=== PATIENT | female | born 1940 | race Caucasian/White ===

== ENCOUNTER 2019-04-04 05:16 | Inpatient (IN) | payer MEDICARE, OTHER ==
[~2019-04-04] VITALS: Ht 157.5 cm; Wt 81.4 kg
[~2019-04-04 05:16] MED LIST: ACET325; ASPI81EC PO; BENAML20/5 PO; BETA.05TCA; Colace100 MG PO; DOCU100 PO; HYDCHL25 PO; INS70/30PN SC; INSLI100I; INSLI100I SC; INSU7030P SC; INSUASPI SC; INSULANI SC; LETR2.5 PO; METF500 PO; NAPR500 PO; Norco 5-325 Ta1 EACH PO; OMEP20ER PO; OXYACE5T; Percocet 5-3251 EACH PO; SODBIC650 PO; SPIHYD PO; WARF5 PO; Zofran Odt8 MG SL
[2019-04-04] MEDS ORDERED: PROM25 PO (06:31)
[2019-04-04 06:42] LABS: BASOPHILS ABSOLUTE AUTO 0.07 K/mm3 (0.00-0.23); BASOPHILS PERCENT AUTO 1 % (0-2); EOSINOPHILS ABSOLUTE AUTO 0.04 K/mm3 (0.00-0.68); EOSINOPHILS PERCENT AUTO 0 % (0-6); Hematocrit 32.5 % (33.0-51.0); Hemoglobin 10.2 g/dL (11.5-16.0); IMMATURE GRAN ABSOLUTE AUTO 0.06 K/mm3 (0.00-0.10); IMMATURE GRAN PERCENT AUTO 0 % (0-1); LYMPHOCYTES ABSOLUTE AUTO 1.51 K/mm3 (0.84-5.20); LYMPHOCYTES PERCENT AUTO 11 % (21-46); MONOCYTES ABSOLUTE AUTO 1.88 K/mm3 (0.16-1.47); MONOCYTES PERCENT AUTO 14 % (4-13); Mean Corpuscular HGB 28.1 pg (26.0-34.0); Mean Corpuscular HGB Conc 31.4 g/dL (31.5-36.5); Mean Corpuscular Volume 90 fL (80-100); Mean Platelet Volume 10.2 fL (9.1-12.4); NEUTROPHILS ABSOLUTE AUTO 10.32 K/mm3 (1.96-9.15); NEUTROPHILS PERCENT AUTO 74 % (41-73); Platelet Count 245 K/mm3 (150-400); RDW Coefficient Variation 17.7 % (11.7-14.2); RDW Standard Deviation 57.9 fL (35.1-46.3); Red Blood Cell Count 3.63 M/mm3 (3.80-5.20); White Blood Cell Count 13.88 K/mm3 (4.00-11.30)
[2019-04-04 07:00] LABS: Albumin, Blood 2.8 g/dL (3.4-5.0); Albumin/Globulin Ratio 0.7 (0.8-1.8); Bun/Creatinine Ratio 19.3 (12.0-20.0); Calcium, Blood 8.9 mg/dL (8.5-10.1); Creatinine, Blood 1.81 mg/dL (0.40-1.00); Potassium, Blood 4.1 mmol/L (3.5-5.5); Total Protein, Blood 6.8 g/dL (6.4-8.2)
[2019-04-04 08:14] LABS: Source, Urine Clean Catch
[2019-04-04 08:19] LABS: Appearance, Urine Clear (Clear); Bilirubin, Urine Neg (Neg); Blood, Urine 3+ (Neg); Glucose Qualitative, Urine 1+ (Neg); Ketones, Urine Neg (Neg); Leukocyte Esterase, Urine Neg (Neg); Nitrite, Urine Neg (Neg); Protein, Urine 4+ (Neg); Specific Gravity, Urine 1.015 (1.003-1.022); Urobilinogen, Urine NORM (Normal)
[2019-04-04 08:20] LABS: Color, Urine Yellow (P-Yellow)
[2019-04-04 08:29] LABS: Bacteria Few /hpf; Red Blood Cells, Urine 0-2 /hpf (0-2); Squamous Epithelial Cells Many /hpf (Few); White Blood Cells, Urine Not Seen /hpf (0-5)
[2019-04-04 08:30] LABS: Granular Casts 0-2 /lpf (0)
[2019-04-04] MEDS ORDERED: FAMO20 PO (12:03)
[2019-04-04] MEDS ORDERED: Metoclopramide H5 MG PO (12:03)
[2019-04-04] MEDS ORDERED: Humalog100 UNIT/1 SC (12:04)
[2019-04-04] MEDS ORDERED: HUMULIN 70100 UNIT/1 SC (12:05)
[2019-04-04] MEDS ORDERED: FURO40 PO ×2 (12:06→12:09)
[2019-04-04] MEDS ORDERED: LIVALO2 MG PO (12:06)
[2019-04-04] MEDS ORDERED: CLON.1 PO ×2 (12:07)
[2019-04-04] MEDS ORDERED: Bisoprolol Fuma10 MG PO (12:07)
[2019-04-04] MEDS ORDERED: Aspir 8181 MG PO (12:08)
[2019-04-04] MEDS ORDERED: TELM80 PO (12:08)
[2019-04-04] MEDS ORDERED: ACET500 PO (12:23)
[2019-04-04] MEDS ORDERED: ZOFRAN4 MG PO (12:24)
--- NOTE | 2019-04-04 14:39 | NUR ---
DR. SWANN IN TO SEE PT AT THIS TIME
--- NOTE | 2019-04-04 21:26 | NUR ---
SHIFT SUMMARY A/O AND NPO T/O SHIFT. UP TO BS W/1 ASSIST R/T WEAKNESS. IVF AND ABX RUNNING PER ORDERS. DR. SWANN IN TO SEE PT THIS AFTER NOON. TELE, CONT. BIOX, AND CPAP IN PLACE. AWAITING BM FOR STOOL SAMPLE. PT IS CURRENTLY RESTING IN BED WITH CPAP ON AND CALL LIGHT IN HAND. WILL CONT. TO MONITOR AND GIVE REPORT TO ONCOMING RN.
[2019-04-05 04:36] LABS: BASOPHILS ABSOLUTE AUTO 0.05 K/mm3 (0.00-0.23); BASOPHILS PERCENT AUTO 0 % (0-2); EOSINOPHILS ABSOLUTE AUTO 0.12 K/mm3 (0.00-0.68); EOSINOPHILS PERCENT AUTO 1 % (0-6); Hematocrit 32.3 % (33.0-51.0); Hemoglobin 9.8 g/dL (11.5-16.0); IMMATURE GRAN ABSOLUTE AUTO 0.06 K/mm3 (0.00-0.10); IMMATURE GRAN PERCENT AUTO 1 % (0-1); LYMPHOCYTES ABSOLUTE AUTO 2.01 K/mm3 (0.84-5.20); LYMPHOCYTES PERCENT AUTO 16 % (21-46); MONOCYTES ABSOLUTE AUTO 1.59 K/mm3 (0.16-1.47); MONOCYTES PERCENT AUTO 13 % (4-13); Mean Corpuscular HGB Conc 30.3 g/dL (31.5-36.5); Mean Corpuscular Volume 92 fL (80-100); Mean Platelet Volume 10.4 fL (9.1-12.4); NEUTROPHILS ABSOLUTE AUTO 8.64 K/mm3 (1.96-9.15); NEUTROPHILS PERCENT AUTO 69 % (41-73); Platelet Count 254 K/mm3 (150-400); RDW Coefficient Variation 17.8 % (11.7-14.2); RDW Standard Deviation 60.4 fL (35.1-46.3); White Blood Cell Count 12.47 K/mm3 (4.00-11.30)
[2019-04-05 04:48] LABS: International Normalized Ratio 1.04; Prothrombin Time Results 11.1 Sec (9.7-11.5)
[2019-04-05 04:58] LABS: Albumin, Blood 2.4 g/dL (3.4-5.0); Albumin/Globulin Ratio 0.6 (0.8-1.8); Bilirubin, Total 0.8 mg/dL (0.1-1.0); Bun/Creatinine Ratio 16.9 (12.0-20.0); Calcium, Blood 8.6 mg/dL (8.5-10.1); Creatinine, Blood 1.89 mg/dL (0.40-1.00); Globulin, Blood 3.8 g/dL (2.2-4.0); Magnesium, Blood 1.9 mg/dL (1.6-2.4); Phosphorus, Blood 2.3 mg/dL (2.5-4.9); Potassium, Blood 4.2 mmol/L (3.5-5.5); Total Protein, Blood 6.2 g/dL (6.4-8.2)
--- NOTE | 2019-04-05 06:33 | NUR ---
PT BP ELEVATED, PT ASYMPTOMATIC. BP RESPONDED TO IV LABETALOL, HR SINUS PER TELE MONITOR. PT CONT TO C/O MILD NAUSEA, NO EMESIS. PT DID REP HALLUCINATIONS AFTER PHENERGAN GIVEN. PT REORIENTED EASILY. PT REP ABD PAIN URIEL, DECLINED NEED FOR PAIN MEDS. PT HAD 1 LARGE FORMED BM, REP LESS ABD PAIN AFTER BM. UNABLE TO COLLECT STOOL SAMPLE R/T CONTAMINATION W/URINE. PT UP W/WALKER +1 ASSIST, IS UNSTEADY WHEN UP. SON IN ROOM FOR MUCH OF NIGHT. PT USING CALL LIGHT FOR ASSISTANCE, BED ALARM ON FOR SAFETY.
--- NOTE | 2019-04-05 17:48 | NUR ---
SUMMARY PT HAS DENIED ABD PAIN THIS SHIFT, TOOK A FEW BITES OF JELLO FOR DINNER AND STATES IT DIDNT SETTLE WELL. PT REPORTS LEFT FOOT PAIN AT BASE OF LEFT GREAT TOE WHICH MAKESIT PAINFUL TO WALK. PT ON CONT BIOX AND HAS REMAINED GREATER THAN 90@, USES CPAP WHEN NAPPING
[2019-04-06 04:50] LABS: BASOPHILS ABSOLUTE AUTO 0.09 K/mm3 (0.00-0.23); BASOPHILS PERCENT AUTO 1 % (0-2); EOSINOPHILS ABSOLUTE AUTO 0.52 K/mm3 (0.00-0.68); EOSINOPHILS PERCENT AUTO 4 % (0-6); Hematocrit 32.7 % (33.0-51.0); Hemoglobin 10.1 g/dL (11.5-16.0); IMMATURE GRAN ABSOLUTE AUTO 0.04 K/mm3 (0.00-0.10); IMMATURE GRAN PERCENT AUTO 0 % (0-1); LYMPHOCYTES ABSOLUTE AUTO 2.06 K/mm3 (0.84-5.20); LYMPHOCYTES PERCENT AUTO 15 % (21-46); MONOCYTES ABSOLUTE AUTO 1.41 K/mm3 (0.16-1.47); MONOCYTES PERCENT AUTO 10 % (4-13); Mean Corpuscular HGB 28.2 pg (26.0-34.0); Mean Corpuscular HGB Conc 30.9 g/dL (31.5-36.5); Mean Corpuscular Volume 91 fL (80-100); Mean Platelet Volume 9.9 fL (9.1-12.4); NEUTROPHILS ABSOLUTE AUTO 9.39 K/mm3 (1.96-9.15); NEUTROPHILS PERCENT AUTO 70 % (41-73); Platelet Count 296 K/mm3 (150-400); RDW Coefficient Variation 17.8 % (11.7-14.2); RDW Standard Deviation 59.5 fL (35.1-46.3); Red Blood Cell Count 3.58 M/mm3 (3.80-5.20); White Blood Cell Count 13.51 K/mm3 (4.00-11.30)
--- NOTE | 2019-04-06 05:00 | NUR ---
SHIFT SUMMARY PT A/O WITH VSS. HAD TWO EPISODES OF NAUSEA WITH NO EMESIS, MEDICATED PER EMAR. TOLERATING WATER, REPORTS BROTH AND JELLO INCREASE NAUSEA. AMB TO BATHROOM WITH FWW, GB, AND ONE ASSIST; REPORTS INCREASED FEAR AND WEAKNESS WITH AMBULATION. SON AT BEDSIDE T/O SHIFT. PT IS CURRENTLY RESTING IN BED WITH CPAP ON AND CALL LIGHT WITHIN REACH. WILL CONT TO MONITOR AND GIVE REPORT TO ONCOMING RN.
[2019-04-06 05:09] LABS: Bun/Creatinine Ratio 16.8 (12.0-20.0); Calcium, Blood 8.8 mg/dL (8.5-10.1); Creatinine, Blood 1.79 mg/dL (0.40-1.00); Potassium, Blood 4.3 mmol/L (3.5-5.5)
--- NOTE | 2019-04-06 08:24 | NUR ---
DR HARRIS HERE TO SEE PT. DISCUSSED PT'S STATUS.
--- NOTE | 2019-04-06 12:15 | NUR ---
PT REPORTED HAVING SHARP H/A THAT CAME AND WENT QUICKLY AND THAT SHE WAS SHORT OF BREATH. PT REPOSITIONED, PLACED ON CPAP AND REPORTS FEELING BETTER, FAMILY WAS IN ROOM. PT RECENTLY MED FOR BP. DISCUSSED PT'S STATUS WITH DR HARRIS. REPORTS WILL PLACE ORDERS.
--- NOTE | 2019-04-06 17:46 | NUR ---
SHIFT SUMMARY PT TOLERATING SMALL AMTS OF ENSURE AT TIMES. PT BEEN MED FOR BP AND NAUSEA. PT REPORTS FEELING BETTER THIS EVENING. PT BEEN RESTING QUIETLY WITH CPAP IN PLACE. BED ALARM IN PLACE. PT FAMILY IN/OUT OF ROOM. PT USING CALL LIGHT APPR. PT BEEN ASSISTED WITH ADL'S PRN. PT VOIDING.
[2019-04-07 01:35] LABS: Stool Occult Blood Guaiac 1 Neg (Neg)
--- NOTE | 2019-04-07 04:15 | NUR ---
SHIFT SUMMARY PT IS A/O X4. PT REQUIRES STANDBY ASSIST WITH WALKER AND GAIT BELT TO BATHROOM. SHE HAS BEEN UP TO BATHROOM SEVERAL TIMES THIS SHIFT. PT IS VOIDING AND PASSING LOOSE/WATERY BROWN STOOL. ATTENS IN PLACE. PT TOLERATING CLEAR LIQUID DIET WITH SOME NAUSEA; GIVEN MEDS PER ORDERS. PT HAS NOT C/O PAIN THIS SHIFT. PT WEARS CPAP AT NIGHT. SON HAS BEEN IN WITH PT OVERNIGHT. ASSISTED WITH ADL'S PRN.
[2019-04-07 05:03] LABS: BASOPHILS ABSOLUTE AUTO 0.04 K/mm3 (0.00-0.23); BASOPHILS PERCENT AUTO 0 % (0-2); EOSINOPHILS ABSOLUTE AUTO 0.48 K/mm3 (0.00-0.68); EOSINOPHILS PERCENT AUTO 4 % (0-6); Hematocrit 31.3 % (33.0-51.0); Hemoglobin 9.9 g/dL (11.5-16.0); IMMATURE GRAN ABSOLUTE AUTO 0.05 K/mm3 (0.00-0.10); IMMATURE GRAN PERCENT AUTO 0 % (0-1); LYMPHOCYTES ABSOLUTE AUTO 1.86 K/mm3 (0.84-5.20); LYMPHOCYTES PERCENT AUTO 16 % (21-46); MONOCYTES ABSOLUTE AUTO 1.28 K/mm3 (0.16-1.47); MONOCYTES PERCENT AUTO 11 % (4-13); Mean Corpuscular HGB 28.8 pg (26.0-34.0); Mean Corpuscular HGB Conc 31.6 g/dL (31.5-36.5); Mean Corpuscular Volume 91 fL (80-100); Mean Platelet Volume 9.9 fL (9.1-12.4); NEUTROPHILS ABSOLUTE AUTO 7.75 K/mm3 (1.96-9.15); NEUTROPHILS PERCENT AUTO 68 % (41-73); Platelet Count 306 K/mm3 (150-400); RDW Standard Deviation 60.6 fL (35.1-46.3); Red Blood Cell Count 3.44 M/mm3 (3.80-5.20); White Blood Cell Count 11.46 K/mm3 (4.00-11.30)
--- NOTE | 2019-04-07 14:00 | NUR ---
PT PLACED IN ISOLATION TO R/O C-DIFF.
--- NOTE | 2019-04-07 18:15 | NUR ---
SHIFT SUMMARY PT TOLERATING F.L. DIET SO FAR "I'M SO FULL", PT CONT TO REPORT TAKING IT SLOW WHEN EATING STILL, DENIES WANTING ANY MORE DINNER. PT BEEN ASSISTED WITH ADL'S PRN. PT HAS "TWELVE STEPS TO GET IN HOUSE". PT FEELS THAT SHE WOULD POSSIBLY NOT BE ABLE TO DO ALL TWELVE STEPS. PT TO WORK WITH THERAPY TOMMOROW TO ASSESS. PT ABLE TO AMBULATE SAFELY WITH WALKER TO BATHROOM WITH SBA. PT USING [employer] APPR.
[2019-04-08] LABS: Adenovirus F 40/41 Not Detected (NOT DETECT); Astrovirus Not Detected (NOT DETECT); Campylobacter Sp Not Detected (NOT DETECT); Cryptosporidium Not Detected (NOT DETECT); Cyclospora Cayetanensis Not Detected (NOT DETECT); E. Coli O157 Not Detected (NOT DETECT); Entamoeba Histolytica Not Detected (NOT DETECT); Enteroaggregative E. coli-EAEC Not Detected (NOT DETECT); Enteropathogenic E. coli-EPEC Not Detected (NOT DETECT); Enterotoxigenic E. coli-ETEC Not Detected (NOT DETECT); Giardia Lamblia Not Detected (NOT DETECT); Norovirus GI/GII Not Detected (NOT DETECT); Plesiomonas Shigelloides Not Detected (NOT DETECT); Rotavirus A Not Detected (NOT DETECT); Salmonella Sp Not Detected (NOT DETECT); Sapovirus Not Detected (NOT DETECT); Shiga Toxin-prod E. coli-STEC Not Detected (NOT DETECT); Shigella/Enteroin E. coli-EIEC Not Detected (NOT DETECT); Vibrio Cholerae Not Detected (NOT DETECT); Vibrio Sp Not Detected (NOT DETECT); Yersinia Enterocolitica Not Detected (NOT DETECT)
--- NOTE | 2019-04-08 06:06 | NUR ---
SHIFT SUMMARY: VARSHA RESTED INTERMITTENTLY DURING THE SHIFT. SHE DID COMPLAIN OF A HEADACHE FOR WHICH SHE REPORTED APAP WAS EFFECTIVE. THE STOOL SAMPLE WAS POSITIVE FOR C-DIFF. SHE REPORTS SOME EPISDOES OF DIARRHEA. SHE IS A STANDBY ASSIST TO THE BATHROOM. SHE HAS BEEN WEARING HER CPAP. SHE IS ANTICIPATING DISCHARGING HOME TODAY. SHE IS TOLERATING A FULL LIQUID DIET WELL, NO N/V. CONTINUOUS PULSE OX IN PLACE, SATURATIONS MAINTAINING ABOVE 93%. SHE IS ABLE TO MAKE HER NEEDS KNOWN. SHE USES HER CALL LIGHT APPROPRIATELY. IV TO RIGHT HAND PATENT. SON AT BESIDE. SHE IS LYING IN BED WITH HER CPAP IN PLACE AND CALL LIGHT IN REACH.
[2019-04-08] MEDS ORDERED: Cipro250 MG PO (14:25)
[2019-04-08] MEDS ORDERED: METR500 PO (14:26)
[2019-04-08] MEDS ORDERED: Florastor250 MG PO (14:27)
--- NOTE | 2019-04-08 15:52 | NUR ---
DISCHARGE: PACKET PRINTED, PT EDUCATED. LEFT UNIT VIA WHEELCHAIR WITH Brenden DIEZ CNA. PT AWARE OF DISCHARGE
== END 2019-04-08 15:20 | disposition home health service (06) | DRG 392 ==
LOC: ER 05:16 → SURS 09:47 → ER 12:11 → SURS 12:22
PROVIDERS: Emergency Medicine; Family Medicine; Nurse Practitioner Acute Care; ADMIT Hospitalist
DX: K57.20 Diverticulitis of large intestine with perforation and abscess without bleeding (principal); E11.22 Type 2 diabetes mellitus with diabetic chronic kidney disease; N18.3 Chronic kidney disease, stage 3 (moderate); I12.9 Hypertensive chronic kidney disease with stage 1 through stage 4 chronic kidney disease, or unspecified chronic kidney disease; B96.89 Other specified bacterial agents as the cause of diseases classified elsewhere; D63.1 Anemia in chronic kidney disease; K21.9 Gastro-esophageal reflux disease without esophagitis; E78.5 Hyperlipidemia, unspecified; E11.43 Type 2 diabetes mellitus with diabetic autonomic (poly)neuropathy; K31.84 Gastroparesis; Z79.82 Long term (current) use of aspirin; Z79.4 Long term (current) use of insulin; Z79.899 Other long term (current) drug therapy; Z88.5 Allergy status to narcotic agent; Z88.2 Allergy status to sulfonamides; Z88.8 Allergy status to other drugs, medicaments and biological substances
CPT/HCPCS: 0097U; 36415; 71045; 74176; 80048; 80053; 81001; 82272; 82947; 83690; 83735; 83880; 84100; 85025; 85610; 87040; 87324; 94762; 96365; 96367; 96375; 97116; 97161; 97530; 99285-25; A9270; A9270-GY; C9113; J0360; J0696; J2405; J2543; J2550; J2765; J7030

== ENCOUNTER 2019-04-08 22:26 | Emergency (ER) | payer MEDICARE, OTHER ==
[~2019-04-08] VITALS: Ht 157.5 cm; Wt 79.4 kg
[~2019-04-08 22:26] MED LIST changes: +ACET500 PO; +Aspir 8181 MG PO; +Bisoprolol Fuma10 MG PO; +CLON.1 PO; +Cipro250 MG PO; +FAMO20 PO; +FURO40 PO; +Florastor250 MG PO; +HUMULIN 70100 UNIT/1 SC; +Humalog100 UNIT/1 SC; +LIVALO2 MG PO; +METR500 PO; +Metoclopramide H5 MG PO; +PROM25 PO; +TELM80 PO; +ZOFRAN4 MG PO
[2019-04-08 22:59] LABS: BASOPHILS ABSOLUTE AUTO 0.05 K/mm3 (0.00-0.23); BASOPHILS PERCENT AUTO 0 % (0-2); EOSINOPHILS ABSOLUTE AUTO 0.27 K/mm3 (0.00-0.68); EOSINOPHILS PERCENT AUTO 2 % (0-6); Hematocrit 32.8 % (33.0-51.0); Hemoglobin 10.4 g/dL (11.5-16.0); IMMATURE GRAN ABSOLUTE AUTO 0.05 K/mm3 (0.00-0.10); IMMATURE GRAN PERCENT AUTO 0 % (0-1); LYMPHOCYTES ABSOLUTE AUTO 1.61 K/mm3 (0.84-5.20); LYMPHOCYTES PERCENT AUTO 13 % (21-46); MONOCYTES ABSOLUTE AUTO 1.21 K/mm3 (0.16-1.47); MONOCYTES PERCENT AUTO 10 % (4-13); Mean Corpuscular HGB 28.8 pg (26.0-34.0); Mean Corpuscular HGB Conc 31.7 g/dL (31.5-36.5); Mean Corpuscular Volume 91 fL (80-100); Mean Platelet Volume 9.8 fL (9.1-12.4); NEUTROPHILS ABSOLUTE AUTO 9.44 K/mm3 (1.96-9.15); NEUTROPHILS PERCENT AUTO 75 % (41-73); Platelet Count 342 K/mm3 (150-400); RDW Coefficient Variation 17.5 % (11.7-14.2); RDW Standard Deviation 58.1 fL (35.1-46.3); Red Blood Cell Count 3.61 M/mm3 (3.80-5.20); White Blood Cell Count 12.63 K/mm3 (4.00-11.30)
[2019-04-08 23:11] LABS: Albumin, Blood 2.6 g/dL (3.4-5.0); Albumin/Globulin Ratio 0.7 (0.8-1.8); Bilirubin, Total 0.4 mg/dL (0.1-1.0); Calcium, Blood 8.8 mg/dL (8.5-10.1); Creatinine, Blood 1.44 mg/dL (0.40-1.00); Globulin, Blood 3.9 g/dL (2.2-4.0); Potassium, Blood 3.6 mmol/L (3.5-5.5); Total Protein, Blood 6.5 g/dL (6.4-8.2)
== END 2019-04-09 02:15 | disposition home or self-care (01) ==
LOC: ER 22:26
PROVIDERS: Emergency Medicine
DX: E11.65 Type 2 diabetes mellitus with hyperglycemia (principal); I10 Essential (primary) hypertension; Z88.8 Allergy status to other drugs, medicaments and biological substances; Z88.2 Allergy status to sulfonamides; Z91.048 Other nonmedicinal substance allergy status; Z88.5 Allergy status to narcotic agent; Z79.899 Other long term (current) drug therapy; Z79.4 Long term (current) use of insulin; Z79.82 Long term (current) use of aspirin
CPT/HCPCS: 36415; 70450; 80053; 82947; 85025; 93005; 93010; 96361; 96374; 99285-25; J1815; J2405; J7030

== ENCOUNTER 2019-05-05 15:00 | Inpatient (IN) | payer MEDICARE, OTHER ==
[~2019-05-05] VITALS: Ht 157.5 cm; Wt 73.6 kg
[~2019-05-05 15:00] MED LIST changes: -Bisoprolol Fuma10 MG PO; +Bisoprolol Fumar5 MG PO
[2019-05-05 16:07] LABS: BASOPHILS ABSOLUTE AUTO 0.06 K/mm3 (0.00-0.23); BASOPHILS PERCENT AUTO 0 % (0-2); EOSINOPHILS ABSOLUTE AUTO 0.21 K/mm3 (0.00-0.68); EOSINOPHILS PERCENT AUTO 1 % (0-6); Hematocrit 37.3 % (33.0-51.0); Hemoglobin 11.7 g/dL (11.5-16.0); IMMATURE GRAN ABSOLUTE AUTO 0.06 K/mm3 (0.00-0.10); IMMATURE GRAN PERCENT AUTO 0 % (0-1); LYMPHOCYTES PERCENT AUTO 14 % (21-46); MONOCYTES ABSOLUTE AUTO 2.34 K/mm3 (0.16-1.47); MONOCYTES PERCENT AUTO 15 % (4-13); Mean Corpuscular HGB 29.9 pg (26.0-34.0); Mean Corpuscular HGB Conc 31.4 g/dL (31.5-36.5); Mean Corpuscular Volume 95 fL (80-100); Mean Platelet Volume 10.7 fL (9.1-12.4); NEUTROPHILS ABSOLUTE AUTO 10.81 K/mm3 (1.96-9.15); NEUTROPHILS PERCENT AUTO 69 % (41-73); Platelet Count 320 K/mm3 (150-400); RDW Coefficient Variation 13.9 % (11.7-14.2); RDW Standard Deviation 49.4 fL (35.1-46.3); Red Blood Cell Count 3.91 M/mm3 (3.80-5.20); White Blood Cell Count 15.58 K/mm3 (4.00-11.30)
[2019-05-05 16:18] LABS: Source, Urine Clean Catch
[2019-05-05 16:23] LABS: Bilirubin, Urine Neg (Neg); Blood, Urine 1+ (Neg); Glucose Qualitative, Urine Neg (Neg); Ketones, Urine Neg (Neg); Leukocyte Esterase, Urine Neg (Neg); Nitrite, Urine Neg (Neg); Protein, Urine 3+ (Neg); Specific Gravity, Urine 1.015 (1.003-1.022); Urobilinogen, Urine NORM (Normal)
[2019-05-05 16:25] LABS: Albumin, Blood 2.9 g/dL (3.4-5.0); Albumin/Globulin Ratio 0.6 (0.8-1.8); Bilirubin, Total 0.6 mg/dL (0.1-1.0); Bun/Creatinine Ratio 28.6 (12.0-20.0); Calcium, Blood 9.4 mg/dL (8.5-10.1); Creatinine, Blood 2.34 mg/dL (0.40-1.00); Globulin, Blood 4.7 g/dL (2.2-4.0); Potassium, Blood 4.1 mmol/L (3.5-5.5); Total Protein, Blood 7.6 g/dL (6.4-8.2)
[2019-05-05 16:45] LABS: Appearance, Urine Hazy (Clear); Color, Urine Yellow (P-Yellow)
[2019-05-05 16:46] LABS: White Blood Cells, Urine 0-2 /hpf (0-5)
[2019-05-05 16:47] LABS: Amorphous Heavy (0-Heavy); Bacteria Few /hpf; Squamous Epithelial Cells Few /hpf (Few)
[2019-05-05] MEDS ORDERED: Zantac150 MG PO (17:25)
--- NOTE | 2019-05-06 04:38 | NUR ---
SHIFT SUMMARY: A/OX3. COMMUNICATES NEEDS. AFEB. PREFERRING TO USE BED CROOKS RATHER THAN T/F W/ ASSIST TO BSC DUE TO CONTINUED WEAKNESS. SBP ELEVATED. CBG 71-135. FREQUENCY OF CBG CHECKS PER PT REQUEST AND FEELING SWEATY. PT DENYING PAIN AT HS AND REPORTED PAIN LATER IN THE NIGHT. TYLENOL EFFECTIVE. DID NOT FALL ASLEEP UNTIL AFTER 3AM. BED LOW, CALL BUTTON EXPLAINED AND PLACED WITHIN REACH. WILL CONT TO MONITOR.
[2019-05-06 05:23] LABS: BASOPHILS ABSOLUTE AUTO 0.05 K/mm3 (0.00-0.23); BASOPHILS PERCENT AUTO 0 % (0-2); EOSINOPHILS ABSOLUTE AUTO 0.18 K/mm3 (0.00-0.68); EOSINOPHILS PERCENT AUTO 1 % (0-6); Hemoglobin 10.1 g/dL (11.5-16.0); IMMATURE GRAN ABSOLUTE AUTO 0.06 K/mm3 (0.00-0.10); IMMATURE GRAN PERCENT AUTO 0 % (0-1); LYMPHOCYTES ABSOLUTE AUTO 2.16 K/mm3 (0.84-5.20); LYMPHOCYTES PERCENT AUTO 13 % (21-46); MONOCYTES ABSOLUTE AUTO 1.96 K/mm3 (0.16-1.47); MONOCYTES PERCENT AUTO 12 % (4-13); Mean Corpuscular HGB 29.9 pg (26.0-34.0); Mean Corpuscular HGB Conc 31.6 g/dL (31.5-36.5); Mean Corpuscular Volume 95 fL (80-100); Mean Platelet Volume 10.6 fL (9.1-12.4); NEUTROPHILS ABSOLUTE AUTO 12.52 K/mm3 (1.96-9.15); NEUTROPHILS PERCENT AUTO 74 % (41-73); Platelet Count 267 K/mm3 (150-400); RDW Coefficient Variation 13.8 % (11.7-14.2); RDW Standard Deviation 47.9 fL (35.1-46.3); Red Blood Cell Count 3.38 M/mm3 (3.80-5.20); White Blood Cell Count 16.93 K/mm3 (4.00-11.30)
[2019-05-06 05:39] LABS: Albumin, Blood 2.2 g/dL (3.4-5.0); Albumin/Globulin Ratio 0.6 (0.8-1.8); Bilirubin, Total 0.6 mg/dL (0.1-1.0); Bun/Creatinine Ratio 25.7 (12.0-20.0); Calcium, Blood 8.3 mg/dL (8.5-10.1); Creatinine, Blood 2.1 mg/dL (0.40-1.00); Globulin, Blood 3.9 g/dL (2.2-4.0); Magnesium, Blood 2.1 mg/dL (1.6-2.4); Potassium, Blood 4.1 mmol/L (3.5-5.5); Total Protein, Blood 6.1 g/dL (6.4-8.2)
--- NOTE | 2019-05-06 18:00 | NUR ---
BLOOD PRESSURE PT'S BLOOD PRESSURE CONTINUES TO BE ELEVATED SYSTOLICLY BUT DIASTOLIC IS LOW. DR. GUERRIER IS AWARE THAT BLOOD PRESSURE CONTINUES TO BE ELEVATED AFTER CHANGING PT'S CLONIDINE DOSE THIS AM. NO NEW ORDERS AT THIS TIME. WILL CONTINUE TO MONITOR. CALL LIGHT IN REACH.
--- NOTE | 2019-05-06 18:43 | NUR ---
SHIFT SUMMARY PT HAS BEEN SLEEPING OFF AND ON THIS SHIFT. NO COMPLAINTS OF PAIN. C/O NAUSEA AND ZOFRAN GIVEN THIS EVENING. PT HAD 2 BMS THIS SHIFT. IVF INFUSING WITHOUT DIFFICULTY. PLANS FOR PT TO DISCHARGE TOMORROW. NO ACUTE CHANGES. CALL LIGHT IN REACH. WILL CONTINUE TO MONITOR AND REPORT TO ONCOMING RN.
--- NOTE | 2019-05-06 23:36 | NUR ---
NAUSEA/RETCHING *LATE ENTRY* DURING ASSESSMENT PT WAS RETCHING & STATED SHE FELT NAUSEOUS R/T THE BEEF STEW SHE ATE FOR DINNER & SHE HAS NAUSEA QUITE FREQUENTLY FROM THINGS SHE EATS R/T HER GASTROPARESIS & DIVERTICULITIS. PT HAD ALREADY RECIEVED PO ZOFRAN @1859 & IT WAS TOO EARLY TO GIVE AGAIN. NOTIFIED DR RAI & SHE ORDERED A OT DOSE OF IV ZOFRAN & PT HAS HAD NO NAUSEA OR RETCHING SINCE. WCTM.
--- NOTE | 2019-05-07 04:47 | NUR ---
SHIFT SUMMARY AOX4. BP ELEVATED @179/56, LOOKS LIKE IT HAS BEEN TRENDING IN THE 170'S SYSTOLIC. REST OF VS ARE STABLE. PT RECIEVED PO CATAPRES & TOPROL @HS LAST NIGHT. CBG @HS 217. REPORTED NAUSEA @BEGINNING OF SHIFT, DENIES ANY THIS AM. DENIES PAIN OR DYSPNEA. STBY ASSIST TO BSC, HAS CLEAR YELLOW URINE OUTPUT. NS RUNNING @75/HR. PT STATES SHE IS EXCITED TO GO HOME TODAY. CALL LIGHT IN REACH. WCTM.
[2019-05-07 05:55] LABS: BASOPHILS ABSOLUTE AUTO 0.06 K/mm3 (0.00-0.23); BASOPHILS PERCENT AUTO 1 % (0-2); EOSINOPHILS ABSOLUTE AUTO 0.86 K/mm3 (0.00-0.68); EOSINOPHILS PERCENT AUTO 7 % (0-6); Hemoglobin 10.5 g/dL (11.5-16.0); IMMATURE GRAN ABSOLUTE AUTO 0.04 K/mm3 (0.00-0.10); IMMATURE GRAN PERCENT AUTO 0 % (0-1); LYMPHOCYTES ABSOLUTE AUTO 2.03 K/mm3 (0.84-5.20); LYMPHOCYTES PERCENT AUTO 17 % (21-46); MONOCYTES ABSOLUTE AUTO 1.37 K/mm3 (0.16-1.47); MONOCYTES PERCENT AUTO 11 % (4-13); Mean Corpuscular HGB 30.5 pg (26.0-34.0); Mean Corpuscular HGB Conc 31.8 g/dL (31.5-36.5); Mean Corpuscular Volume 96 fL (80-100); Mean Platelet Volume 11.3 fL (9.1-12.4); NEUTROPHILS ABSOLUTE AUTO 7.68 K/mm3 (1.96-9.15); NEUTROPHILS PERCENT AUTO 64 % (41-73); Platelet Count 266 K/mm3 (150-400); RDW Coefficient Variation 13.4 % (11.7-14.2); RDW Standard Deviation 47.2 fL (35.1-46.3); Red Blood Cell Count 3.44 M/mm3 (3.80-5.20); White Blood Cell Count 12.04 K/mm3 (4.00-11.30)
[2019-05-07 06:23] LABS: Albumin, Blood 2.2 g/dL (3.4-5.0); Anion Gap 7 mmol/L (6-16); Blood Urea Nitrogen 41 mg/dL (8-24); Bun/Creatinine Ratio 24.3 (12.0-20.0); CO2, Blood 23 mmol/L (21-32); Calcium, Blood 8.7 mg/dL (8.5-10.1); Chloride, Blood 108 mmol/L (98-108); Creatinine, Blood 1.69 mg/dL (0.40-1.00); Glomerular Filtration Rate 31 (60-); Glucose, Blood 154 mg/dL (70-99); Magnesium, Blood 1.9 mg/dL (1.6-2.4); Phosphorus, Blood 2.7 mg/dL (2.5-4.9); Potassium, Blood 4.2 mmol/L (3.5-5.5); Sodium, Blood 138 mmol/L (136-145)
--- NOTE | 2019-05-07 18:15 | NUR ---
NO ACUTE CHANGES THIS SHIFT. SHE IS ABLE TO EXPRESS ANY NEEDS. CALL LIGHT WITHIN REACH.
[2019-05-08 05:29] LABS: Hematocrit 33.1 % (33.0-51.0); Hemoglobin 10.7 g/dL (11.5-16.0)
[2019-05-08 05:55] LABS: Albumin, Blood 2.4 g/dL (3.4-5.0); Anion Gap 9 mmol/L (6-16); Blood Urea Nitrogen 35 mg/dL (8-24); Bun/Creatinine Ratio 22.7 (12.0-20.0); CO2, Blood 22 mmol/L (21-32); Calcium, Blood 8.9 mg/dL (8.5-10.1); Chloride, Blood 104 mmol/L (98-108); Creatinine, Blood 1.54 mg/dL (0.40-1.00); Glomerular Filtration Rate 34 (60-); Glucose, Blood 217 mg/dL (70-99); Magnesium, Blood 1.9 mg/dL (1.6-2.4); Phosphorus, Blood 2.3 mg/dL (2.5-4.9); Potassium, Blood 4.3 mmol/L (3.5-5.5); Sodium, Blood 135 mmol/L (136-145)
--- NOTE | 2019-05-08 07:48 | NUR ---
SHIFT SUMMARY AOX4. PT HAS NOT SLEPT MORE THAN AN HOUR TONIGHT & STATES SHE "JUST WANTS TO GO HOME." BP WAS 203/78 LAST NIGHT & I GAVE SCHEDULED PM BP MEDS & WHEN RECHECKED BP WAS 190/70, THIS AM BP HAS DECREASED TO 149/81. PT ALSO REPORTED FEELING NAUSEOUS AND WAS MEDICATED 2X W/ZOFRAN PER ORDERS, HOWEVER DID NOT HAVE RETCHING LIKE PREVIOUS NIGHT. DENIES PAIN. REPORTED DYSPNEA & STATED SHE NORMALLY WEAR A CPAP @HS, RT BROUGHT CPAP FOR PT TO WEAR HOWEVER SHE DID NOT LIKE THE ONE WE PROVIDED & STATED SHE WOULD HAVE SOMEONE BRING IN HERS FROM HOME. CALL LIGHT IN REACH.
[2019-05-08] MEDS ORDERED: CLON.1 PO (09:00)
[2019-05-08] MEDS ORDERED: METO100ER PO (09:00)
[2019-05-08] MEDS ORDERED: FAMO20 PO (09:01)
[2019-05-08] MEDS ORDERED: DOCU100 PO (09:02)
--- NOTE | 2019-05-08 13:28 | NUR ---
1208 PT DISCHARGED HOME WITH HH. PT HAD IV REMOVED, NO SS OF INFECTION NOTED. PT DRESSED BY STUDEN AND BELONGINGS GATHERED. NURSE WENT OVER DISCHARGE INSTRUCTIONS WITH SON AND PT. APPOINTMENTS MADE FOR FOLLOW [employer]. MEDS FAXED TO PHARMACY OF CHOICE. PT WHEELED OUT BY NURSE AND ASSISTED INTO CAR. PT TAKEN HOME BY SON.
== END 2019-05-08 12:08 | disposition home health service (06) | DRG 683 ==
LOC: ER 15:00 → MEDS 17:57 → ENPENDDIS 05-08 08:42 → MEDS 05-08 12:08
PROVIDERS: Emergency Medicine; Internal Medicine Nephrology; ADMIT Family Medicine
DX: N17.9 Acute kidney failure, unspecified (principal); E87.1 Hypo-osmolality and hyponatremia; N18.3 Chronic kidney disease, stage 3 (moderate); E11.22 Type 2 diabetes mellitus with diabetic chronic kidney disease; I12.9 Hypertensive chronic kidney disease with stage 1 through stage 4 chronic kidney disease, or unspecified chronic kidney disease; E86.0 Dehydration; E11.43 Type 2 diabetes mellitus with diabetic autonomic (poly)neuropathy; K31.84 Gastroparesis; D63.1 Anemia in chronic kidney disease; E86.9 Volume depletion, unspecified; E83.39 Other disorders of phosphorus metabolism; K21.9 Gastro-esophageal reflux disease without esophagitis; E78.5 Hyperlipidemia, unspecified; K59.00 Constipation, unspecified; N25.81 Secondary hyperparathyroidism of renal origin; Z88.5 Allergy status to narcotic agent; Z88.2 Allergy status to sulfonamides; Z88.8 Allergy status to other drugs, medicaments and biological substances; Z79.4 Long term (current) use of insulin; Z79.82 Long term (current) use of aspirin; Z79.899 Other long term (current) drug therapy
CPT/HCPCS: 36415; 51701; 71046; 76770; 80053; 80069; 81001; 82947; 83605; 83735; 84145; 85014; 85018; 85025; 94660; 94762; 96360-59; 96361; 96361-59; 96365; 96372; 96375; 96376; 97110; 97112; 97116; 97162; 97165; 97530; 97535; 99285-25; A9270-GY; G0378; J0696; J1650; J1815; J2405; J7030; J7060

== ENCOUNTER 2019-06-25 20:10 | Emergency (ER) | payer MEDICARE, OTHER ==
[~2019-06-25] VITALS: Ht 157.5 cm; Wt 74.8 kg
[~2019-06-25 20:10] MED LIST changes: +METO100ER PO; +Zantac150 MG PO
[2019-06-25 20:57] LABS: BASOPHILS ABSOLUTE AUTO 0.08 K/mm3 (0.00-0.23); BASOPHILS PERCENT AUTO 1 % (0-2); EOSINOPHILS PERCENT AUTO 4 % (0-6); Hemoglobin 13.5 g/dL (11.5-16.0); IMMATURE GRAN ABSOLUTE AUTO 0.04 K/mm3 (0.00-0.10); IMMATURE GRAN PERCENT AUTO 0 % (0-1); LYMPHOCYTES ABSOLUTE AUTO 2.58 K/mm3 (0.84-5.20); LYMPHOCYTES PERCENT AUTO 25 % (21-46); MONOCYTES ABSOLUTE AUTO 0.91 K/mm3 (0.16-1.47); MONOCYTES PERCENT AUTO 9 % (4-13); Mean Corpuscular HGB 28.4 pg (26.0-34.0); Mean Corpuscular HGB Conc 32.1 g/dL (31.5-36.5); Mean Corpuscular Volume 88 fL (80-100); Mean Platelet Volume 11.1 fL (9.1-12.4); NEUTROPHILS ABSOLUTE AUTO 6.28 K/mm3 (1.96-9.15); NEUTROPHILS PERCENT AUTO 61 % (41-73); Platelet Count 243 K/mm3 (150-400); RDW Coefficient Variation 13.2 % (11.7-14.2); RDW Standard Deviation 43.3 fL (35.1-46.3); Red Blood Cell Count 4.76 M/mm3 (3.80-5.20); White Blood Cell Count 10.29 K/mm3 (4.00-11.30)
[2019-06-25 21:18] LABS: Alanine Aminotransfer (ALT/SGP 25 U/L (12-78); Albumin, Blood 3.2 g/dL (3.4-5.0); Albumin/Globulin Ratio 0.8 (0.8-1.8); Alk Phos 96 U/L (50-136); Anion Gap 7 mmol/L (6-16); Aspartate Aminotrans (AST/SGOT 26 U/L (12-37); Bilirubin, Total 0.3 mg/dL (0.1-1.0); Blood Urea Nitrogen 46 mg/dL (8-24); Bun/Creatinine Ratio 35.1 (12.0-20.0); CO2, Blood 26 mmol/L (21-32); Calcium, Blood 9.5 mg/dL (8.5-10.1); Chloride, Blood 104 mmol/L (98-108); Creatinine, Blood 1.31 mg/dL (0.40-1.00); Globulin, Blood 4.2 g/dL (2.2-4.0); Glomerular Filtration Rate 41 (60-); Glucose, Blood 184 mg/dL (70-99); Potassium, Blood 4.2 mmol/L (3.5-5.5); Sodium, Blood 137 mmol/L (136-145); Total Protein, Blood 7.4 g/dL (6.4-8.2); Troponin I <0.015 ng/mL (0.000-0.040)
[2019-06-25 21:34] LABS: Source, Urine Clean Catch
[2019-06-25 21:43] LABS: Bilirubin, Urine Neg (Neg); Blood, Urine 3+ (Neg); Glucose Qualitative, Urine Neg (Neg); Ketones, Urine Neg (Neg); Leukocyte Esterase, Urine 3+ (Neg); Nitrite, Urine Neg (Neg); Protein, Urine 4+ (Neg); Urobilinogen, Urine NORM (Normal)
[2019-06-25 21:50] LABS: Appearance, Urine Clear (Clear); Color, Urine Yellow (P-Yellow)
[2019-06-25 21:51] LABS: Bacteria Mod /hpf; Squamous Epithelial Cells Mod /hpf (Few); White Blood Cells, Urine 25-50 /hpf (0-5)
[2019-06-25] MEDS ORDERED: CEFP200 PO (22:12)
== END 2019-06-25 23:50 | disposition home or self-care (01) ==
LOC: ER 20:10
PROVIDERS: Emergency Medicine
DX: R55 Syncope and collapse (principal); N39.0 Urinary tract infection, site not specified; I12.9 Hypertensive chronic kidney disease with stage 1 through stage 4 chronic kidney disease, or unspecified chronic kidney disease; E11.22 Type 2 diabetes mellitus with diabetic chronic kidney disease; N18.9 Chronic kidney disease, unspecified; D63.1 Anemia in chronic kidney disease; E11.43 Type 2 diabetes mellitus with diabetic autonomic (poly)neuropathy; K31.84 Gastroparesis; K21.9 Gastro-esophageal reflux disease without esophagitis; E78.5 Hyperlipidemia, unspecified; Z88.8 Allergy status to other drugs, medicaments and biological substances; Z88.2 Allergy status to sulfonamides; Z91.048 Other nonmedicinal substance allergy status; Z88.5 Allergy status to narcotic agent; Z79.4 Long term (current) use of insulin; Z79.82 Long term (current) use of aspirin; Z79.899 Other long term (current) drug therapy
CPT/HCPCS: 36415; 70450; 71045; 80053; 81001; 84484; 85025; 87077; 87086; 87186; 93005; 93010; 96374; 99285-25; J0696

== ENCOUNTER 2019-06-29 19:28 | Inpatient (IN) | payer MEDICARE, OTHER ==
[~2019-06-29] VITALS: Ht 157.5 cm; Wt 68.8 kg
[~2019-06-29 19:28] MED LIST changes: +CEFP200 PO
[2019-06-29 19:58] LABS: BASOPHILS ABSOLUTE AUTO 0.06 K/mm3 (0.00-0.23); BASOPHILS PERCENT AUTO 1 % (0-2); EOSINOPHILS ABSOLUTE AUTO 0.41 K/mm3 (0.00-0.68); EOSINOPHILS PERCENT AUTO 4 % (0-6); Hematocrit 40.8 % (33.0-51.0); Hemoglobin 13.1 g/dL (11.5-16.0); IMMATURE GRAN PERCENT AUTO 1 % (0-1); LYMPHOCYTES ABSOLUTE AUTO 1.72 K/mm3 (0.84-5.20); LYMPHOCYTES PERCENT AUTO 16 % (21-46); MONOCYTES ABSOLUTE AUTO 0.87 K/mm3 (0.16-1.47); MONOCYTES PERCENT AUTO 8 % (4-13); Mean Corpuscular HGB 28.6 pg (26.0-34.0); Mean Corpuscular HGB Conc 32.1 g/dL (31.5-36.5); Mean Corpuscular Volume 89 fL (80-100); Mean Platelet Volume 11.4 fL (9.1-12.4); NEUTROPHILS ABSOLUTE AUTO 7.42 K/mm3 (1.96-9.15); NEUTROPHILS PERCENT AUTO 70 % (41-73); Platelet Count 252 K/mm3 (150-400); RDW Coefficient Variation 13.4 % (11.7-14.2); Red Blood Cell Count 4.58 M/mm3 (3.80-5.20); White Blood Cell Count 10.58 K/mm3 (4.00-11.30)
[2019-06-29 20:20] LABS: Alanine Aminotransfer (ALT/SGP 30 U/L (12-78); Albumin/Globulin Ratio 0.7 (0.8-1.8); Alk Phos 93 U/L (50-136); Anion Gap 7 mmol/L (6-16); Aspartate Aminotrans (AST/SGOT 41 U/L (12-37); Bilirubin, Total 0.4 mg/dL (0.1-1.0); Blood Urea Nitrogen 45 mg/dL (8-24); Bun/Creatinine Ratio 27.8 (12.0-20.0); CO2, Blood 26 mmol/L (21-32); Calcium, Blood 9.5 mg/dL (8.5-10.1); Chloride, Blood 108 mmol/L (98-108); Creatinine, Blood 1.62 mg/dL (0.40-1.00); Globulin, Blood 4.3 g/dL (2.2-4.0); Glomerular Filtration Rate 32 (60-); Glucose, Blood 144 mg/dL (70-99); Potassium, Blood 4.7 mmol/L (3.5-5.5); Sodium, Blood 141 mmol/L (136-145); Total Protein, Blood 7.3 g/dL (6.4-8.2); Troponin I <0.015 ng/mL (0.000-0.040)
--- NOTE | 2019-06-29 23:30 | NUR ---
PCU ADMIT PT BROUGHT TO PCU-10 BY YOHANA FROM ER @ APPROX 2240. PT SLID OVER BY 4 STAFF D/T PT REPORT OF L HIP PAIN & DENYING ABILITY TO MOVE. PT A&O X4. BP ELEVATED, OTHERWISE VSS. PT REPORTS SYS BP "NORMALLY 200's." LUNG SOUNDS CLEAR W/ SPO2 > 92% ON RA. PT C/O PAIN W/ ROLLING TO SIDE WHILE IN BED. PT REQUESTING JOHNSON CATH STATING "CAN I PLEASE BE HOOKED UP TO WHERE I DON'T HAVE TO MOVE." PT ENCOURAGED TO USE BED CROOKS, ADVISING AGAINST PLACEMENT OF JOHNSNO CATH IF NOT NECESSARY D/T POSSIBLE RISK OF INFECTION W/ PT STATING "OH YES, I HAVE HAD UTI's." PT ALSO ENCOURAGED TO REPOSITION FREQUENTLY TO PREVENT FURTHER SKIN BREAK DOWN. PT FOUND TO HAVE PRESSURE ULCER ON COCCYX. PT AGREEABLE & TOLERATING BEDPAN WELL THOUGH MOVEMENT IS UNCOMFORTABLE. PT W/ N&V W/ APPROX 20 MLS EMESIS UPON ARRIVAL TO UNIT. IV ZOFRAN PROVIDED PER EMAR W/ NO FURTHER EMESIS. PT THEN REQUESTING A TURKEY SANDWICH STATING SHE USUALLY EATS A QUARTER TURKEY SANDWICH Q3H AT HOME THAT MAKES HER FEEL BETTER. PT PROVIDED W/ SANDWICH UPON REQUEST W/ PT REPORTING "YOUR TURKEY HERE TASTES LIKE GARBAGE." PT REQUESTING "CAN I BE HOOKED UP TO IV NUTRITION SO I DON'T HAVE TO EAT?" PT ADVISED TO CONTINUE ORAL INTAKE LONG SHE IS ABLE & THAT WE CAN ADDRESS THE NEED W/ MD IF SHE BECOMES UNABLE TO EAT.
--- NOTE | 2019-06-30 03:21 | NUR ---
0224: DIRECTOR OF COMMUNICATIONS JAKE INFORMED STAFF URGENTLY TO CHECK ON PATIENT, UPON ENTERING THE ROOM PATIENT IN BED AND APPEARED DAZE STATING " I THINK I JUST FELL". WHEN ASKED WHERE SHE WAS SHE STATED "[facility]". REVIEWING RHYTHM STRIPS IT A SHOWED 16 SECOND VENTRICULAR DANIELA STILL. BLOOD PRESSURE 188 SYSTOLIC, ZOLL PLACED BE SIDE BED WITH PADS PLACED ON PATIENT, MACHINE ON MONITOR. EXPLAINED TO PATIENT WHAT HAD HAPPEND, EXPRESSING THAT SHE UNDERSTANDS AND WANT TO CONTIUNE COARSE OF MONITORING AND PACING IF NEEDED TO MAKE IT TO PPM PLACEMENT. DR MAKI NOTIFIED, BETA KARL DC'D AND CARDIOLOGY CONSULT PLACED. WILL CONTINUE TO MONITOR.
[2019-06-30 04:15] LABS: BASOPHILS ABSOLUTE AUTO 0.04 K/mm3 (0.00-0.23); BASOPHILS PERCENT AUTO 0 % (0-2); EOSINOPHILS ABSOLUTE AUTO 0.04 K/mm3 (0.00-0.68); EOSINOPHILS PERCENT AUTO 0 % (0-6); Hematocrit 36.2 % (33.0-51.0); Hemoglobin 11.6 g/dL (11.5-16.0); IMMATURE GRAN ABSOLUTE AUTO 0.05 K/mm3 (0.00-0.10); IMMATURE GRAN PERCENT AUTO 0 % (0-1); LYMPHOCYTES ABSOLUTE AUTO 1.77 K/mm3 (0.84-5.20); LYMPHOCYTES PERCENT AUTO 14 % (21-46); MONOCYTES PERCENT AUTO 7 % (4-13); Mean Corpuscular HGB 28.3 pg (26.0-34.0); Mean Corpuscular Volume 88 fL (80-100); Mean Platelet Volume 11.2 fL (9.1-12.4); NEUTROPHILS ABSOLUTE AUTO 10.24 K/mm3 (1.96-9.15); NEUTROPHILS PERCENT AUTO 79 % (41-73); Platelet Count 230 K/mm3 (150-400); RDW Coefficient Variation 13.5 % (11.7-14.2); RDW Standard Deviation 43.8 fL (35.1-46.3); White Blood Cell Count 13.04 K/mm3 (4.00-11.30)
[2019-06-30 04:29] LABS: Bun/Creatinine Ratio 27.1 (12.0-20.0); Calcium, Blood 8.9 mg/dL (8.5-10.1); Creatinine, Blood 1.55 mg/dL (0.40-1.00); Potassium, Blood 4.5 mmol/L (3.5-5.5)
--- NOTE | 2019-06-30 05:52 | NUR ---
UPDATE / TRANSFER TO ICU HEALTH AND WELLNESS COORDINATOR ALERTING STAFF TO URGENTLY GO TO PT RM @ 0430 WHEN PT ENTERED INTO 38 SECOND VENTRICULAR STAND STILL. PT ALREADY ON ZOLL. PT THEN EXTERNALLY PACED FOR APPROX 8 MIN UNTIL PT RETURNED TO SR. PT AWOKE & BEGAN TO VOMIT. MD MAKI NOTIFIED AND ARRIVED TO PT RM W/ ORDERS FOR TRANSFER TO ICU W/ DOPAMINE GTT & GLUCAGON. PT IN AND OUT OF SR & EXTERNAL PACING. MD MILLIGAN TO UNIT W/ INSTRUCTIONS TO CALL IN DIRECTIONAL DRILLER TEAM. NURSING LAY BROTHER NOTIFIED. PT TRANSFERED TO ICU-09 @ APPROX 0515. BEDSIDE REPORT GIVEN TO ICU NURSE ASSUMING CARE.
--- NOTE | 2019-06-30 06:10 | NUR ---
TRANSFER TO ICU PT RECEIVED FROM PCU AT APPROXIMATELY 0515 WITH THREE RNs AND DR. MILLIGAN AT BEDSIDE. AWAKE AND ALERT. COLOR PALE. C/O NAUSEA. TRANSCUTANEOUS PACEMAKER IN PLACE AND IS INTERMITTENTLY PACING. RIGHT HAND IV PULLED OUT DURING TRANSFER. NEW IV PLACED TO LEFT HAND. 3MG IV GLUCAGON GIVEN PER ORDER. ATROPINE 0.5MG IV GIVEN X 1. MEDICATED WITH FENTANYL 50MCG IV X 1 AND VERSED 1MG IV FOR PAIN/ANXIETY WITH EXTERNAL PACEMAKER. BP STABLE. RA SATS 94-95%. RESPIRATIONS EVEN AND UNLABORED. TO TELEVISION REPORTER AT 0610 FOR TRANSVENOUS PACEMAKER. LIQUOR MAKER SPOKE WITH PT'S SON PRIOR TO TRANSFER TO ICU. WILL GIVE REPORT TO DAY SHIFT LIGHT BULB TESTER WHEN AVAILABLE.
--- NOTE | 2019-06-30 08:50 | NUR ---
RETURN TO ICU PT RETURNED TO ICU APPROX 0740. BEDSIDE REPORT RECEIVED FROM MANAGEMENT TECHNICIAN RN AND NEWS BROADCASTER RN. DR. MILLIGAN TO BEDSIDE FOR ROUNDING. TRANSVENOUS PACER SET AT VV1 RATE 50, V-5, MV2-[address] MILLIGAN AT BEDSIDE, RATE INCREASED MY MD TO 90, CAPTURE VERIFIED ON MONITOR, AND RATE TURNED BACK DOWN TO 50. PT'S RATE 80'S-90'S NSR AT THE TIME. SINCE ARRIVAL, PT HAS HAD SEVERAL EPISODES OF BEING 100% PACED FOR 30 SECONDS - 2 MINUTES. BP ELEVATED, LISINOPRIL GIVEN. PT AFEBRILE. RR EVEN, UNLABORED. 02 SAT 90'S ON ROOM AIR. PT SHIVERING, PROVIDED WITH BLANKETS. INITIALLY NAUSEATED, MEDICATED WITH REGLAN. SINCE THEN, PT ABLE TO TOLERATE SCHEDULED ORAL MEDICATIONS AND SOME OF HER BREAKFAST. REPORTS HIP PAIN FROM RECENT FALL, SAYS SHE HAD AN X-RAY BUT UNABLE TO FIND X-RAY ON CHART. WILL DISCUSS PT'S CONCERNS WITH HOSPITALIST ON ROUNDING. PT RESTING QUIETLY AT THIS TIME, CALL LIGHT IN HAND, AGREEABLE TO CALL FOR NEEDS.
--- NOTE | 2019-06-30 15:00 | NUR ---
UPDATE - PACEMAKER WHILE TURNING PATIENT TO CHANGE INCONTINENT URINE, PT TILTED TO RIGHT SIDE, PACEMAKER STOPPED CAPTURING, PT WENT INTO ASYSTOLE AND LOST CONSCIOUSNESS. PT IMMEDIATELY RETURNED TO BACK, PACEMAKER CAPTURE RETURNED, AND PT REGAINED CONSCIOUSNESS WITHIN 15 SECONDS. PT INITIALLY CONFUSED, BUT WAS ORIENTED AFTER A MINUTE OR SO, STATING, "DID MY HEART STOP AGAIN?" PT EDUCATED. PACEMAKER NOTED TO NOT BE CAPTURING CORRECTLY AT ALL TIMES. RATE 80'S, BUT PACEMAKER SPIKES NOTED ON T WAVE. DR. MILLIGAN CALLED AND TO BEDSIDE WITHIN 15 MINUTES. NO FURTHER EPISODES DURING THAT TIME. PACEMAKER SETTINGS ADJUSTED BY MD. CAPTURE VERIFIED. WITHIN 15 MINUTES, PACER SPIKES NOTED TO BE ON T WAVES AGAIN. PT NOTED TO HAVE MULTIPLE 3 SECOND PAUSES, REPORTS MILD DIZZINESS, BUT DOES NOT LOSE CONSCIOUSNESS. DR. MILLIGAN BACK TO BEDSIDE. PACEMAKER SET TO BACKUP RATE OF 80, V-10, MV2-[address] MILLIGAN. PT 100% PACED. SINCE THEN, PT HAS CONTINUED TO BE 100% PACED AT 90 BPM. BP ELEVATED FOR DURATION OF EVENTS, NO EPISODES OF HYPOTENSION.
[2019-06-30 17:15] LABS: Source, Urine Catheter
[2019-06-30 17:21] LABS: Bilirubin, Urine Neg (Neg); Blood, Urine Neg (Neg); Glucose Qualitative, Urine 2+ (Neg); Ketones, Urine 1+ (Neg); Leukocyte Esterase, Urine Neg (Neg); Nitrite, Urine Neg (Neg); Protein, Urine 4+ (Neg); Urobilinogen, Urine NORM (Normal)
[2019-06-30 17:22] LABS: Appearance, Urine Hazy (Clear); Color, Urine Yellow (P-Yellow)
[2019-06-30 17:29] LABS: Amorphous Mod (0-Heavy); Bacteria Few /hpf; Mucus Light (0-Heavy); Red Blood Cells, Urine 0-2 /hpf (0-2); Squamous Epithelial Cells Few /hpf (Few); White Blood Cells, Urine 0-2 /hpf (0-5)
--- NOTE | 2019-06-30 18:27 | NUR ---
SPOKE WITH PT REGARDING CODE STATUS. SHE STATED WANTED TO BE A FULL CODE FOR NOW. SHE ONLY WANTED TO BE KEPT ALIVE FOR 10 DAYS. PT SATED "MY FEAR IS I DON'T WANT TO BE A VEGETABLE." DR. ROSARIO WAS NOTIFIED REGARDING THIS. ORDER WAS CHANGED.
--- NOTE | 2019-06-30 18:49 | NUR ---
SUMMARY NO ACUTE CARDIAC EVENTS SINCE PREVIOUS NOTE. SEE RHYTHM STRIPS ON PAPER CHART. PT HAS CONTINUED TO BE ALERT, ORIENTED, BUT OCCASIONALLY FORGETFUL. BP STABLE. PT AFEBRILE. HR 100% PACED AT 90 BPM. SINCE EVENT, PT HAS NOT WANTED TO EVEN DO SMALL HIP TILTS FOR TURNING. PT AWARE OF HER PRESSURE ULCER, STATES, "I WILL TURN TOMORROW AFTER MY PACEMAKER IS PLACED." NO PHOTO OF WOUND DUE TO INABILITY TO TURN PATIENT FAR ENOUGH. PERM PACEMAKER SCHEDULED FOR TOMORROW MORNING. JOHNSON FOR URINE OUTPUT. SIPS AND CHIPS ONLY UNABLE TO RAISE HEAD OF BED WITHOUT PACEMAKER GOING IN AND OUT OF CAPTURE. NPO AFTER MIDNIGHT. PT'S SON UPDATED ON PLAN OF CARE. ORTHO MD CONSULTED FOR LEFT HIP. PATIENT AWARE. FENTANYL FOR PAIN, PT HAS ONLY WANTED TO BE MEDICATED ONCE FOR THIS.
--- NOTE | 2019-06-30 19:10 | NUR ---
ASSUMED CARE OF PT, BEDSIDE REPORT RECEIVED. PT IS RESTING QUIETLY RECLINING IN BED, DENIES PAIN AT REST, DENIES NEEDS AT THIS TIME. SHE IS ALERT AND ORIENTED, DENIES SOB/DYSPNEA, ADMITS TO CONTINUING SLIGHT NAUSEA ALTHOUGH STATES THAT THIS IS HER BASELINE. SHE STATES THAT WHEN SHE LOOKS TO HER LEFT DURING BEDSIDE REPORT THAT SHE FEELS DIZZY, RHYTHM AT TIME OF STATEMENT IS NOTED TO NOT BE PACED, PACER SPIKES ARE SEEN IN VARYING LOCATIONS ON RHYTHM STRIP, PT RETURNS TO 100% PACED AT SET RATE OF 90/MIN WHEN SHE RETURNS TO FACING STRAIGHT AHEAD, DISCUSSED IMPORTANCE OF MAINTAINING POSITION WITH PT, SHE IS NOTED TO REACH UP TOWARD DRESSING TO RIGHT IJ INTERMITTENTLY DURING ASSESSMENT, DISCUSSED IMPORTANCE OF NOT REACHING ABOVE SHOULDER LEVEL AT THIS TIME, WILL MONITOR, TRANSVENOUS PACEMAKER SETTINGS ARE NOTED AT RATE OF 90 /MIN, VV1, MV2 SET AT 3, V 10, BLOOD PRESSURE IS NOTED IMPROVED AND MAINTAINING, PULSES ARE FULL TO BILAT LOWER EXTREMITIES, NO EDEMA IS NOTED, SKIN PWD, S1 AND S2 ARE PRESENT WITH NO CLICKS OR RUBS TO AUSCULTATION, APICAL AND RADIAL PULSES MATCH AT THIS TIME. LUNGS ARE CLEAR THROUGHOUT, SATS MAINTAINING ON ROOM AIR, PT IS SPEAKING IN FULL SENTENCES WITHOUT VISIBLE INCREASED WORK OF BREATHING. HYPOACTIVE BOWEL TONES ARE NOTED, ABD SOFT, NONTENDER TO PALP. JOHNSON CATH IN PLACE DRAINING CLEAR YELLOW URINE TO GRAVITY. PERIPHERAL IV ACCESS IS NOTED TO LEFT HAND, FLUSHES WELL, DRESSING CDI, SITE WNL. DRESSING TO RIGHT IJ IS CDI, SITE WNL.
--- NOTE | 2019-06-30 19:16 | NUR ---
REPORT TO DIANA NUNEZ TO ASSUME CARE
--- NOTE | 2019-06-30 22:00 | NUR ---
RIGHT ARM MOVEMENT PT CONTINUES TO REACH UP AND SCRATCH AT DRESSING TO RIGHT NECK, STATES THAT SHE JUST FORGETS, EDGES OF DRESSING ARE NOTED PEELING UP AND CATCHING PT'S HAIR HOWEVER MAIN PORTION OF DRESSING CONTINUES INTACT WITHOUT COMPROMISE, PROTECTIVE SKIN BARRIER APPLIED AT EDGES OF DRESSING AND ROLLED EDGES ARE COVERED WITH SMALL AMOUNTS OF TAPE TO SECURE, WILL MONITOR. DISCUSSED POSSIBLE WRIST RESTRAINT WITH PT AND SHE REQUESTS A LOOSE, SOFT WRIST RESTRAINT TO RIGHT UPPER EXTREMITY A REMINDER TO NOT SCRATCH AT DRESSING. ORDER OBTAINED AND RESTRAINT PLACED. WILL MONITOR.
[2019-07-01 03:26] LABS: Hematocrit 36.7 % (33.0-51.0); Hemoglobin 11.4 g/dL (11.5-16.0); Mean Corpuscular HGB Conc 31.1 g/dL (31.5-36.5); Mean Corpuscular Volume 90 fL (80-100); Mean Platelet Volume 11.2 fL (9.1-12.4); Platelet Count 190 K/mm3 (150-400); RDW Coefficient Variation 14.3 % (11.7-14.2); RDW Standard Deviation 47.2 fL (35.1-46.3); Red Blood Cell Count 4.07 M/mm3 (3.80-5.20); White Blood Cell Count 13.56 K/mm3 (4.00-11.30)
[2019-07-01 03:40] LABS: Albumin, Blood 2.6 g/dL (3.4-5.0); Anion Gap 9 mmol/L (6-16); Blood Urea Nitrogen 57 mg/dL (8-24); Bun/Creatinine Ratio 26.8 (12.0-20.0); CO2, Blood 22 mmol/L (21-32); Chloride, Blood 104 mmol/L (98-108); Creatinine, Blood 2.13 mg/dL (0.40-1.00); Glomerular Filtration Rate 24 (60-); Glucose, Blood 199 mg/dL (70-99); Phosphorus, Blood 3.8 mg/dL (2.5-4.9); Potassium, Blood 4.8 mmol/L (3.5-5.5); Sodium, Blood 135 mmol/L (136-145)
--- NOTE | 2019-07-01 06:46 | NUR ---
PT AWAKE MOST OF THIS SHIFT, FREQUENTLY INQUIRES REGARDING THE TIME AND STATES THAT SHE CANNOT READ CLOCK ON WALL OF ROOM, SHE HAS BEEN NOTED TO BE COUNTING DOWN TO 0700. SHE STATED DIFFICULTY SLEEPING RELATED TO ABD DISCOMFORT WHICH SHE REPORTS HER BASELINE SECONDARY TO GASTROPARESIS, STATES ALSO THAT SHE NORMALLY SLEEPS ON HER LEFT SIDE AND THAT SHE IS APPREHENSIVE REGARDING A POSSIBLE SECOND SURGERY TO HER LEFT HIP. PT WAS MEDICATED WITH PHENERGAN 12.5 MG IV X 2 FOR NAUSEA, HER SON REPORTS THIS AM THAT PT HAS HAD HALLUCINATIONS IN THE PAST AFTER TAKING PHENERGAN, PT STATES THAT THERE WAS A MEDCIATION THAT CAUSED HER TO HALLUCINATE HOWEVER SHE DOES NOT REMEMBER THE NAME AND SHE HAS DENIED HALLUCINATIONS THIS SHIFT. SHE COMPLAINED OF INCREASED PAIN TO 7/10 X 2 AND FENTANYL 25 MCG IV WAS ADMINISTERED, SHE WAS NOTED TO DESAT TO LOW 80S WITHOUT CPAP FOLLOWING PAIN MEDS HOWEVER MAINTAINS MID TO HIGH 90S WITH CPAP USE. SHE STATES THAT SHE FEELS CLAUSTROPHOBIC WITH HOSPITAL PROVIDED CPAP MASK AND THAT HERS AT HOME IS "MORE LIKE TWO PRONGS THAT GO UP MY NOSE" HOWEVER SHE DID TOLERATE HOSPITAL PROVIDED CPAP FOR APPROXIMATELY 3 HOURS TOTAL THIS SHIFT. SHE CONTINUES PACED AT 90 THIS AM, TRANSVENOUS PACEMAKER SETTINGS CONTINUE WITHOUT CHANGES, DRESSING TO RIGHT NECK REMAINS CDI, EDGES OF DRESSING WERE REINFORCED X 2 FOR ROLLING OF EDGES OF TAPE WHICH WAS GETTING CAUGHT IN PT'S HAIR AND CAUSING DISCOMFORT, PRESSURES MAINTAINING, PULSES REMAIN FULL X 4, APICAL AND RADIAL PULSES CONTINUE TO MATCH AT THIS TIME, S1 AND S2 PRESENT WITHOUT RUBS OR CLICKS, PACEMAKER IS NOTED TO HAVE FAILURE TO CAPTURE AND FAILURE TO SENSE WITH MOVEMENT OF RIGHT ARM ABOVE SHOULDER WELL PT TURNING HER HEAD TO THE LEFT, SHE WAS CAUTIONED AGAINST BOTH OF THESE AND ULTIMATELY A SOFT RIGHT WRIST RESTRAINT WAS PLACED FOR PACEMAKER PROTECTION, PT'S RATE REMAINS 80S DURING PERIODS OF FAILURE TO CAPTURE WITH THE EXCEPTION OF 1 EPISODE AT 2211 AT WHICH TIME SHE HAD A 2.5 SECOND PAUSE AND REPORTED THAT SHE FELT DIZZY BUT DID NOT LOSE CONSCIOUSNESS. LUNGS REMAIN CLEAR THROUGHOUT, SATS HIGH 90S ON ROOM AIR WHEN AWAKE, RATE TEENS. INTERMITTENT NAUSEA CONTINUES, PT REPORTS IS BASELINE. LOW URINE OUTPUT AFTER MIDNOC, ORDERS FOR MAINTENANCE FLUIDS OBTAINED AND URINE OUTPUT IS IMPROVING AT THIS TIME.
--- NOTE | 2019-07-01 08:00 | NUR ---
CARE ASSUMED - PT TO ESTATE PLANNING ATTORNEY REPORT RECEIVED, CARE ASSUMED AT 0700 FROM DIANA NUNEZ. PT ASLEEP, AROUSES EASILY UPON ENTERING ROOM. VITALS STABLE. PT 100% PACED. RIGHT WRIST RESTRAINT TO REMIND PT NOT TO USE ARM OR SCRATCH AT PACEMAKER DRESSING. PT VERBALIZES UNDERSTANDING REGARDING RESTRAINT. PT EXPRESSES UNDERSTANDING NOT TO TURN HER HEAD, WHEN SHE TURNS HEAD PACER FAILURES TO CAPTURE INTERMITTENTLY. PT REQUESTS TO HAVE TV CHANNEL CHANGED, CHANNELS CHANGED FOR PATIENT. OTHERWISE DENIES NEEDS. PT TO ESTATE PLANNING ATTORNEY AT 0800 WITH ESTATE PLANNING ATTORNEY STAFF.
--- NOTE | 2019-07-01 12:32 | NUR ---
DR. RONDON, DR. CAMILO AND SANDWICH AND DRINK CART OPERATOR AT BEDSIDE AT THIS TIME
[2019-07-01 12:36] LABS: Base Excess Venous -8.2 mmol/L; Bicarbonate Venous 17.5 mmol/L (24.0-30.0); PCO2 Venous 40.8 mmHg (38-42); PO2 Venous 32.3 mmHg (38-42); pH Blood Venous 7.27 (7.34-7.37)
[2019-07-01 12:49] LABS: BASOPHILS ABSOLUTE AUTO 0.05 K/mm3 (0.00-0.23); BASOPHILS PERCENT AUTO 0 % (0-2); EOSINOPHILS ABSOLUTE AUTO 0.05 K/mm3 (0.00-0.68); EOSINOPHILS PERCENT AUTO 0 % (0-6); Hematocrit 31.8 % (33.0-51.0); Hemoglobin 9.7 g/dL (11.5-16.0); IMMATURE GRAN ABSOLUTE AUTO 0.05 K/mm3 (0.00-0.10); IMMATURE GRAN PERCENT AUTO 0 % (0-1); LYMPHOCYTES ABSOLUTE AUTO 2.96 K/mm3 (0.84-5.20); LYMPHOCYTES PERCENT AUTO 23 % (21-46); MONOCYTES ABSOLUTE AUTO 1.08 K/mm3 (0.16-1.47); MONOCYTES PERCENT AUTO 8 % (4-13); Mean Corpuscular HGB 28.6 pg (26.0-34.0); Mean Corpuscular HGB Conc 30.5 g/dL (31.5-36.5); Mean Platelet Volume 11.1 fL (9.1-12.4); NEUTROPHILS ABSOLUTE AUTO 8.82 K/mm3 (1.96-9.15); NEUTROPHILS PERCENT AUTO 68 % (41-73); Platelet Count 210 K/mm3 (150-400); RDW Coefficient Variation 14.5 % (11.7-14.2); RDW Standard Deviation 50.1 fL (35.1-46.3); Red Blood Cell Count 3.39 M/mm3 (3.80-5.20); White Blood Cell Count 13.01 K/mm3 (4.00-11.30)
[2019-07-01 12:51] LABS: Mean Corpuscular Volume 94 fL (80-100)
--- NOTE | 2019-07-01 14:54 | NUR ---
Stat echocardiogram performed with Dr. Calvo supervising.
[2019-07-01 16:07] LABS: Hematocrit 33.6 % (33.0-51.0); Hemoglobin 10.2 g/dL (11.5-16.0)
--- NOTE | 2019-07-01 18:42 | NUR ---
SUMMARY PT RETURNED FROM MANAGER AIR WITH PERM PACEMAKER APPROX 1110. PT PALE, DIAPHORETIC, OPENS EYES TO PRESSURE, BUT MINIMALLY RESPONSIVE. BREATHING EXTREMELY SHALLOW. HYPOTENSIVE. HR 60'S AND 100% ATRIAL AND VENTRICULAR PACED. PT ENDED UP RECEIVING MULTIPLE BOLUSES, STARTED ON NEOSYNEPHRINE, GIVEN NARCAN AND PLACED ON A BIPAP. ECHO COMPLETED. DR. CAMILO HAD MANAGER AIR STAFF TURN UP BACKUP RATE OF PACEMAKER TO 70 BPM. SINCE THEN, PT 100% PACED AT A RATE OF 70. PT'S BLOOD PRESSURE IMPROVED THROUGHOUT AFTERNOON, SEE FLOWSHEET. NEOSYNEPHRINE OFF AT THIS TIME. PT HAS BECOME MUCH MORE ALERT, SAT UP IN BED AND DRANK A FEW SIPS OF WATER, NO SIGNS OF ASPIRATION. GIVEN APPLESAUCE AND MILK ON DINNER TRAY AND PT ATE A FEW BITES. PT INTERMITTENLY NAUSATED, GIVEN MEDICATIONS PER EMAR. SINCE PT HAS BEEN MORE AWAKE, SHE HAS REFUSED BIPAP AND STATES, "I HAVE A RIGHT TO REFUSE." EDUCATED ON PURPOSE FOR BIPAP. BREATHING CONTINUES TO BE SHALLOW, BUT RATE HAS BEEN IMPROVED. PT USING CALL LIGHT FOR NEEDS. MINIMAL URINE OUTPUT. UPDATED DR. RONDON THAT PT HAS HAD 100 ML OF URINE OUTPUT FOR ENTIRE SHIFT. PHOTO PLACED ON CHART OF PT'S PRESSURE ULCER ON COCCYX. SLING PLACED TO LEFT ARM. SLIGHT SWELLING TO PACEMAKER SITE AND SMALL AMOUNT OF BLOOD UNDERNEATH DRESSING, BUT SITE STABLE SINCE ARRIVAL TO UNIT. DR. VICENTE TO BEDSIDE FOR ASSESSMENT, PLAN FOR SURGERY TOMORROW IF PT IS CLEARED BY ANESTHESIA. CONSENT FILLED OUT BY DR. VICENTE WITH PATIENT. PT'S DAUGHTER, ELICIA, UPDATED THIS AFTERNOON.
--- NOTE | 2019-07-01 19:05 | NUR ---
ASSUMED CARE OF PT, BEDSIDE REPORT RECEIVED. PT IS RESTING QUIETLY RECLINING IN BED AND DRINKING MILK AT THIS TIME, DENIES NEEDS. DENIES CURRENT N/V, DENIES CP/PRESSURE, DENIES SOB/DYSPNEA, DOES ADMIT TO FEELING A LITTLE DIZZY. IS ABLE TO VERBALIZE MOVEMENT RESTRICTIONS FOR LEFT ARM RELATED TO PACEMAKER INSERTION TODAY. SHE IS SPEAKING WITH SOFT VOICE QUALITY IN FULL SENTENCES, NO INCREASED WORK OF BREATHING IS VISIBLE AT THIS TIME, SATS MAINTAINING ON ROOM AIR, LUNGS CLEAR THROUGHOUT. HRR, 100% PACED AT 70 B/MIN AT THIS TIME, PRESSURE IS IMPROVED, NEOSYNEPHRINE IS ON STANDBY, SKIN PWD, MINIMAL EDEMA TO RIGHT HAND IS NOTED. NORMOACTIVE BOWEL TONES ARE NOW NOTED, ABD SOFT, NO GRIMACING WITH LIGHT PALPATION. JOHNSON REMAINS IN PLACE, DRAINING SCANT AMOUNTS OF CLEAR YELLOW URINE, WILL MONITOR. PACEMAKER INSERTION SITE TO LEFT UPPER CHEST WITH NONADHERENT DRESSING COVERED BY TEGADERM WITH SCANT AMOUNT OF SS DRAINAGE NOTED UNDER DRESSING, NO SWELLING AT THIS TIME. DRESSING TO LEFT IJ CLEAN DRY AND INTACT, NO REDNESS/SWELLING OR DRAINAGE AT INSERTION.
--- NOTE | 2019-07-01 19:15 | NUR ---
REPORT TO DIANA NUNEZ TO ASSUME CARE
[2019-07-01 22:30] LABS: Hematocrit 30.8 % (33.0-51.0); Hemoglobin 9.6 g/dL (11.5-16.0)
[2019-07-02 04:05] LABS: BASOPHILS ABSOLUTE AUTO 0.03 K/mm3 (0.00-0.23); BASOPHILS PERCENT AUTO 0 % (0-2); EOSINOPHILS ABSOLUTE AUTO 0.12 K/mm3 (0.00-0.68); EOSINOPHILS PERCENT AUTO 1 % (0-6); Hematocrit 30.7 % (33.0-51.0); Hemoglobin 9.8 g/dL (11.5-16.0); IMMATURE GRAN ABSOLUTE AUTO 0.04 K/mm3 (0.00-0.10); IMMATURE GRAN PERCENT AUTO 0 % (0-1); LYMPHOCYTES ABSOLUTE AUTO 1.96 K/mm3 (0.84-5.20); LYMPHOCYTES PERCENT AUTO 15 % (21-46); MONOCYTES ABSOLUTE AUTO 1.02 K/mm3 (0.16-1.47); MONOCYTES PERCENT AUTO 8 % (4-13); Mean Corpuscular HGB 28.8 pg (26.0-34.0); Mean Corpuscular HGB Conc 31.9 g/dL (31.5-36.5); Mean Platelet Volume 11.3 fL (9.1-12.4); NEUTROPHILS ABSOLUTE AUTO 9.68 K/mm3 (1.96-9.15); NEUTROPHILS PERCENT AUTO 75 % (41-73); Platelet Count 151 K/mm3 (150-400); RDW Coefficient Variation 14.6 % (11.7-14.2); RDW Standard Deviation 48.4 fL (35.1-46.3); White Blood Cell Count 12.85 K/mm3 (4.00-11.30)
[2019-07-02 04:09] LABS: Mean Corpuscular Volume 90 fL (80-100)
[2019-07-02 04:18] LABS: Hematocrit 30.3 % (33.0-51.0); Hemoglobin 9.5 g/dL (11.5-16.0)
[2019-07-02 04:22] LABS: Bun/Creatinine Ratio 29.4 (12.0-20.0); Calcium, Blood 7.8 mg/dL (8.5-10.1); Creatinine, Blood 2.52 mg/dL (0.40-1.00); Potassium, Blood 4.8 mmol/L (3.5-5.5)
--- NOTE | 2019-07-02 07:21 | NUR ---
PT RESTS QUIETLY THROUGHOUT SHIFT, NPO AT [facility] FOR POSS SURGERY TODAY. SHE HAS DENIED PAIN OTHER THAN BRIEFLY WITH POSITION CHANGES AT WHICH TIME SHE RATES HER PAIN AT 7/10 BUT WITH CESSATION OF MOVEMENT HER PAIN RETURNS TO 0/10 UPPER LEFT THIGH. LUNGS CONT CLEAR THROUGHOUT, SATS MAINTAIN ON ROOM AIR, RATE TEENS THROUGHOUT NOC, SHE IS SPEAKING IN FULL SENTENCES WITHOUT VISIBLE INCREASED WORK OF BREATHING. CONTINUES 100% PACED, SET AT 70, HAS INCREASED TO MID TO UPPER 70S AT TIMES, PRESSURES INCREASED TO 160-170S SYSTOLIC, PT CONTINUES LESS THAN 180. DRESSING TO PACEMAKER REMAINS CDI THIS AM, MINIMAL SWELLING IS PALPABLE, PT HAS REMAINED COMPLIANT WITH MOVEMENT RESTRICTIONS TO LEFT ARM WELL.
--- NOTE | 2019-07-02 07:42 | NUR ---
ASSUMED CARE REPORT FROM DIANA NUNEZ. PATIENT A&O, ASSISTED WITH PHONE CALL TO HER SON
--- NOTE | 2019-07-02 07:43 | NUR ---
MD VISIT DR. CAMILO IN
--- NOTE | 2019-07-02 09:51 | NUR ---
PATIENT NPO SINCE MIDNIGHT. FREQ REQUESTS DRINK OF WATER. INSULIN HELD FOR NPO. AM MEDS HELD. WAITING FOR ANESTHESIA TO COME SEE PATIENT.
--- NOTE | 2019-07-02 14:08 | NUR ---
SURGERY CANCELED UNTIL TOMORROW. PATIENT IS NOW SURGERY W/ TELE STATUS. LUNCH OFFERED, BUT ONLY WANTED MILK, JELLO AND PEARS. INSULIN GIVEN PER SS
--- NOTE | 2019-07-02 15:34 | NUR ---
BED BATH GIVEN. RIJ INTRODUCER CATHETER REMOVED. PRESSURE HELD FOR 10 MINUTES. PETROLEUM DRESSING WITH CLEAR OCCLUSIVE OVER THE TOP. TOLERATED WELL.
--- NOTE | 2019-07-02 16:51 | NUR ---
PT C/O SLADE. TYLENOL GIVEN. COOL CLOTH OVER EYES.
--- NOTE | 2019-07-02 17:14 | NUR ---
Initial spiritual care note: Mrs. Parker appears weak and admits she is fearful. She is awaiting her 2nd surgery in as many days. She states it is hard for her not to have her son present to comfort her. She allowed me to pray for her at bedside. Provided assurance of excellent care/attention and God's ever-present love for her. I will remain available.
--- NOTE | 2019-07-02 17:16 | NUR ---
PATIENT WANTED GLUCERNA AND YOGURT FOR DINNER. WILL BE TX'D TO 216 AFTER REPORT.
--- NOTE | 2019-07-02 17:31 | NUR ---
REPORT GIVEN TO DIANA BYRD. PATIENT WILL BE MOVED IN HER BED TO 216 BY DIMITRI
--- NOTE | 2019-07-02 17:39 | NUR ---
TRANSFERRED BY [facility] TO 211
--- NOTE | 2019-07-02 17:45 | NUR ---
TRANSFER ARRIVES FROM ICU. TX TO BED. REPOSITIONED TO COMFORT HIP AND PT REQUESTS TO REST. SURG SITE TO L NECK WNL. L ARM IN SLING.
--- NOTE | 2019-07-02 23:07 | NUR ---
DR. JOYCE IN TO SEE PT DR. JOYCE IN TO SEE PT AT THIS TIME. ORDERS FOR T/S AND ONE UNIT OF BLOOD OBTAINED. PLAN TO HOLD ONE UNIT FOR SURGERY. ALSO NEW INSULIN ORDERS ONTAINED FROM HOSPITALIST PER DR. JOYCE REQUEST. SEE EMAR. PLAN FOR SURGERY IN AM.
--- NOTE | 2019-07-03 04:21 | NUR ---
SHIFT SUMMARY PT A/OX4 WITH VSS. RECEIVED ON UNIT OF BLOOD AND INCREASED INSULIN COVERAGE PER DR VICENTE. NEW 18 GAUGE IN LEFT AC PLACED DURING SHIFT. HR IN NSR IN THE 70'S T/O SHIFT. PACEMAKER DRESSING APPEARS C/D/I WITH SHADOWING NOTED. DRESSING TO LEFT NECK C/D/I. JOHNSON PATENT AND DRAINING URINE. PT NPO SINCE MIDNIGHT. REPORTS PASSING FLATUS. REFUSED REPOSITIONING T/O SHIFT DESPITE ENCOURAGEMENT AND EDUCATION. DENIED NEED FOR PAIN MEDICATION. APPEARS TO BE CURRENTLY RESTING IN BED WITH CALL LIGHT IN REACH AND BED IN LOWEST POSITION. WILL CONT TO MONITOR AND GIVE REPORT TO ONCOMING RN. PLAN FOR SURGERY TODAY WITH DR. VICENTE.
--- NOTE | 2019-07-03 06:30 | NUR ---
BP CHANGE BP ELEVATED AT 180/70. MEDICATED PER EMAR; RECENT BP RECHECK IS NOW 107/66. PT DENIES CONCERNS AT THIS TIME. HAS CALL LIGHT IN REACH AND BED IN LOWEST POSITION. WILL CONTINUE TO MONITOR AND GIVE REPORT TO ONCOMING RN.
[2019-07-03 08:08] LABS: BASOPHILS ABSOLUTE AUTO 0.03 K/mm3 (0.00-0.23); BASOPHILS PERCENT AUTO 0 % (0-2); EOSINOPHILS ABSOLUTE AUTO 0.21 K/mm3 (0.00-0.68); EOSINOPHILS PERCENT AUTO 1 % (0-6); Hematocrit 36.3 % (33.0-51.0); Hemoglobin 11.6 g/dL (11.5-16.0); IMMATURE GRAN ABSOLUTE AUTO 0.11 K/mm3 (0.00-0.10); IMMATURE GRAN PERCENT AUTO 1 % (0-1); LYMPHOCYTES ABSOLUTE AUTO 1.42 K/mm3 (0.84-5.20); LYMPHOCYTES PERCENT AUTO 9 % (21-46); MONOCYTES PERCENT AUTO 8 % (4-13); Mean Corpuscular HGB 28.2 pg (26.0-34.0); Mean Corpuscular Volume 88 fL (80-100); Mean Platelet Volume 11.3 fL (9.1-12.4); NEUTROPHILS ABSOLUTE AUTO 12.34 K/mm3 (1.96-9.15); NEUTROPHILS PERCENT AUTO 81 % (41-73); Platelet Count 178 K/mm3 (150-400); RDW Coefficient Variation 14.3 % (11.7-14.2); RDW Standard Deviation 46.1 fL (35.1-46.3); Red Blood Cell Count 4.12 M/mm3 (3.80-5.20); White Blood Cell Count 15.31 K/mm3 (4.00-11.30)
[2019-07-03 08:24] LABS: Albumin, Blood 2.5 g/dL (3.4-5.0); Anion Gap 8 mmol/L (6-16); Blood Urea Nitrogen 73 mg/dL (8-24); Bun/Creatinine Ratio 33.5 (12.0-20.0); CO2, Blood 20 mmol/L (21-32); Calcium, Blood 8.7 mg/dL (8.5-10.1); Chloride, Blood 109 mmol/L (98-108); Creatinine, Blood 2.18 mg/dL (0.40-1.00); Glomerular Filtration Rate 23 (60-); Glucose, Blood 222 mg/dL (70-99); Phosphorus, Blood 3.3 mg/dL (2.5-4.9); Potassium, Blood 4.6 mmol/L (3.5-5.5); Sodium, Blood 137 mmol/L (136-145)
--- NOTE | 2019-07-03 08:44 | NUR ---
TO DAY SURGERY PER BED
--- NOTE | 2019-07-03 14:23 | NUR ---
POST OP RETURN TO ROOM. PT SLEEPY, ANSWERS QUESTIONS. LEFT HIP DRESSING DRY AND INTACT. POLAR PACK IN PLACE TO LEFT HIP. PT DENIES NUMBNESS OR TINGLING OF EXTRENITIES. MOVES ALL EXTREMITIES TO COMMAND
--- NOTE | 2019-07-03 17:36 | NUR ---
SUMMARY PT REMAINS SLEEPY, AWAKENS TO VERBAL STIMULI. TAKING SMALL AMOUNTS OF FOOD AND FLUIDS. PT DENIES NEED FOR PAIN MEDICATION. LEFT HIP DRESSING DRY AND INTACT. BILATERAL FEET WARM, PINK WITH MOVEMENT AND SENSATION INTACT. POLAR PACK IN PLACE TO INCISION SITE. SPOKE WITH PATIENTS SON, ESTIVEN, POST OP TO UPDATE HIM ON PATIENTS CONDITION
--- NOTE | 2019-07-04 05:28 | NUR ---
SHIFT SUMMARY: ROWENA IS A&O X 4. SHE DID STATE ONCE THIS SHIFT THAT SHE FELT "CONFUSED". SHE WAS ABLE TO ANSWER ALL QUESTIONS APPRORPIATELY AND WAS NOT ABLE TO GIVE ANY CLARIFYING INFORMATION REGARING HER SENSATION OF CONFUSION. SHE IS TAKING SIPS OF WATER AND A FEW BITES OF FRUIT. SHE HAS COMPLAINED OF HEARTBURN FOR WHICH SHE WAS GIVEN TUMS. SHE C/O NAUSEA FOR WHICH SHE REPORTED ZOFRAN EFFECTIVE. SHE WAS EDUCATED SEVERAL TIMES ABOUT THE NWB STATUS OF HER LEFT ARM. SHE WAS ENCOURAGED TO USE HER RIGHT ARM TO MOVE HERSELF AND REPOSITION IN BED. SHE STATES THAT HER LOWER EXTREMITIES ARE PAINFUL TO TOUCH AT BASELINE. JOHNSON DRAINING CLEAR, YELLOW URINE. SHE IS ABLE TO MAKE HER NEEDS KNOWN. IV TO L AC SALINE LOCKED. SHE IS LYING IN BED WITH HER CALL LIGHT IN REACH. WILL REPORT TO DAY SHIFT RN.
[2019-07-04 09:33] LABS: Albumin, Blood 2.1 g/dL (3.4-5.0); Anion Gap 9 mmol/L (6-16); Blood Urea Nitrogen 71 mg/dL (8-24); Bun/Creatinine Ratio 36.6 (12.0-20.0); CO2, Blood 18 mmol/L (21-32); Calcium, Blood 8.2 mg/dL (8.5-10.1); Chloride, Blood 110 mmol/L (98-108); Creatinine, Blood 1.94 mg/dL (0.40-1.00); Glomerular Filtration Rate 26 (60-); Glucose, Blood 205 mg/dL (70-99); Potassium, Blood 5.3 mmol/L (3.5-5.5); Sodium, Blood 137 mmol/L (136-145)
[2019-07-04 09:33] LABS: Hematocrit 30.5 % (33.0-51.0); Hemoglobin 9.8 g/dL (11.5-16.0); Mean Corpuscular HGB 28.7 pg (26.0-34.0); Mean Corpuscular HGB Conc 32.1 g/dL (31.5-36.5); Mean Corpuscular Volume 89 fL (80-100); Mean Platelet Volume 10.7 fL (9.1-12.4); Platelet Count 162 K/mm3 (150-400); RDW Coefficient Variation 14.4 % (11.7-14.2); RDW Standard Deviation 46.4 fL (35.1-46.3); Red Blood Cell Count 3.42 M/mm3 (3.80-5.20); White Blood Cell Count 13.37 K/mm3 (4.00-11.30)
--- NOTE | 2019-07-04 12:00 | NUR ---
DR CAMILO IN TO ADJUST PATIENT'S PACEMAKER; STATES PATIENT MAY TAKE SLING OFF TOMORROW, CONT TO BE MINDFUL OF NOT RAISING ARM ABOVE SHOULDER X 6 WEEKS; FOLLOW UP IN OFFICE NEXT WEEK.
--- NOTE | 2019-07-04 16:52 | NUR ---
SHIFT SUMMARY PATIENT UP WITH PT TODAY, MOVING VERY SLOWLY. MEDICATED FOR PAIN W/ NORCO 1/2 TAB, THEN SLEPT. TOLERATING PO. CIRC CHECKS TO L HIP WNL, DRESSING D&I. NO C/O AT THIS TIME. POSSIBLE SNF D/C TOMORROW.
--- NOTE | 2019-07-05 03:26 | NUR ---
BLOOD ORDER VERIFY CALLED LAB TO VERIFY BLOOD ORDER. VERIFIED THAT ONE UNIT WAS TRANSFUSED 07/01 PER ORDERS AND ONE UNIT IS BEING HELD IN BLOOD BANK.
[2019-07-05 04:15] LABS: Hematocrit 29.4 % (33.0-51.0); Hemoglobin 9.2 g/dL (11.5-16.0); Mean Corpuscular HGB 28.6 pg (26.0-34.0); Mean Corpuscular HGB Conc 31.3 g/dL (31.5-36.5); Mean Corpuscular Volume 91 fL (80-100); Mean Platelet Volume 10.8 fL (9.1-12.4); Platelet Count 185 K/mm3 (150-400); RDW Coefficient Variation 14.6 % (11.7-14.2); RDW Standard Deviation 48.7 fL (35.1-46.3); Red Blood Cell Count 3.22 M/mm3 (3.80-5.20); White Blood Cell Count 10.62 K/mm3 (4.00-11.30)
--- NOTE | 2019-07-05 04:35 | NUR ---
SHIFT SUMMARY PT HAS BEEN A/O, SEEMS FORGETFUL/ CONFUSED AT TIMES. PT HAS BEEN REPOSITIONED MULT TIMES. PAIN MANAGED WITH PO PAIN MEDS PER ORDERS. O2 HAS BEEN IN PLACE DURING THE NIGHT. PT HAS CPAP AT BEDSIDE FROM HOME, HOWEVER PT REPORTS THAT NOT ALL THE PIECES ARE THERE SO IT DOESN'T WORK. O2 IN USE DURING THE NIGHT. CONT. BIOX IN PLACE THROUGH THE NIGHT. PO INTAKE HAS BEEN ENCOURAGED DURING THE SHIFT. ASSISTED WITH ADL'S PRN. NO ACUTE CHANGES OVERNIGHT.
[2019-07-05 04:36] LABS: Albumin, Blood 1.9 g/dL (3.4-5.0); Anion Gap 5 mmol/L (6-16); Blood Urea Nitrogen 72 mg/dL (8-24); CO2, Blood 21 mmol/L (21-32); Calcium, Blood 8.5 mg/dL (8.5-10.1); Chloride, Blood 108 mmol/L (98-108); Glomerular Filtration Rate 25 (60-); Glucose, Blood 92 mg/dL (70-99); Potassium, Blood 4.8 mmol/L (3.5-5.5); Sodium, Blood 134 mmol/L (136-145)
--- NOTE | 2019-07-05 12:41 | NUR ---
REPORT CALLED TO YULI, FINISHED HARDWARE ERECTOR AT [facility] [address] AT THIS TIME. TRANSPORT ARRANGED FOR 1400.
--- NOTE | 2019-07-05 14:30 | NUR ---
PATIENT TRANSFERRED TO [facility] AT THIS TIME.
== END 2019-07-05 14:41 | disposition home or self-care (01) | DRG 242 ==
LOC: ER 19:28 → PCU 19:29 → ICUW 19:29 → PCU 22:40 → ICUW 06-30 05:16 → SURS 06-30 12:38 → ICUW 06-30 12:39 → SURS 07-02 17:45
PROVIDERS: Emergency Medicine; Internal Medicine; Internal Medicine Pulmonary Disease; Nurse Practitioner Acute Care; ADMIT Internal Medicine
PROC: 02HK3JZ Insertion of Pacemaker Lead into Right Ventricle, Percutaneous Approach (ICD-10-PCS; principal; 2019-07-01)
PROC: 0JH606Z Insertion of Pacemaker, Dual Chamber into Chest Subcutaneous Tissue and Fascia, Open Approach (ICD-10-PCS; 2019-07-01)
PROC: 0SRB0JZ Replacement of Left Hip Joint with Synthetic Substitute, Open Approach (ICD-10-PCS; 2019-07-03)
PROC: 0SPB0JZ Removal of Synthetic Substitute from Left Hip Joint, Open Approach (ICD-10-PCS; 2019-07-03)
PROC: 4A023FZ Measurement of Cardiac Rhythm, Percutaneous Approach (ICD-10-PCS; 2019-07-03)
PROC: 30233N1 Transfusion of Nonautologous Red Blood Cells into Peripheral Vein, Percutaneous Approach (ICD-10-PCS; 2019-07-03)
DX: I44.2 Atrioventricular block, complete (principal); S72.92XA Unspecified fracture of left femur, initial encounter for closed fracture; R57.8 Other shock; M97.02XA Periprosthetic fracture around internal prosthetic left hip joint, initial encounter; I42.2 Other hypertrophic cardiomyopathy; E87.2 Acidosis; N17.9 Acute kidney failure, unspecified; N25.81 Secondary hyperparathyroidism of renal origin; W19.XXXA Unspecified fall, initial encounter; R55 Syncope and collapse; I16.0 Hypertensive urgency; Z85.3 Personal history of malignant neoplasm of breast; Z79.4 Long term (current) use of insulin; E78.5 Hyperlipidemia, unspecified; I12.9 Hypertensive chronic kidney disease with stage 1 through stage 4 chronic kidney disease, or unspecified chronic kidney disease; E11.22 Type 2 diabetes mellitus with diabetic chronic kidney disease; N18.3 Chronic kidney disease, stage 3 (moderate); G47.33 Obstructive sleep apnea (adult) (pediatric); K59.00 Constipation, unspecified; K21.9 Gastro-esophageal reflux disease without esophagitis; I95.9 Hypotension, unspecified; Z91.81 History of falling
CPT/HCPCS: 33208; 33210; 33228; 36415; 36430; 51702; 70450; 71045; 71046; 72170; 73502; 76937; 80048; 80053; 80069; 81001; 82803; 82947; 83605; 84443; 84484; 85014; 85018; 85025; 85027; 86850; 86900; 86901; 86923; 93005; 93010; 93306; 94660; 94762; 96374; 96375; 96376; 97110; 97162; 97530; 99152; 99153; 99285-25; A9270; A9270-GY; C1769; C1776; C1785; C1894; C1898; G0378; J0171; J0330; J0360; J0461; J0690; J0735; J1610; J1644; J1885; J2250; J2310; J2370; J2405; J2550; J2795; J3010; J7030; J7040; J7050; J7120; P9016

== ENCOUNTER 2019-07-30 14:46 | Inpatient (IN) | payer MEDICARE, OTHER ==
[~2019-07-30] VITALS: Ht 157.5 cm; Wt 73.3 kg
[2019-07-30 16:39] LABS: BASOPHILS ABSOLUTE AUTO 0.08 K/mm3 (0.00-0.23); BASOPHILS PERCENT AUTO 1 % (0-2); EOSINOPHILS ABSOLUTE AUTO 0.34 K/mm3 (0.00-0.68); EOSINOPHILS PERCENT AUTO 3 % (0-6); Hematocrit 28.7 % (33.0-51.0); Hemoglobin 8.8 g/dL (11.5-16.0); IMMATURE GRAN ABSOLUTE AUTO 0.19 K/mm3 (0.00-0.10); IMMATURE GRAN PERCENT AUTO 2 % (0-1); LYMPHOCYTES ABSOLUTE AUTO 1.36 K/mm3 (0.84-5.20); LYMPHOCYTES PERCENT AUTO 11 % (21-46); MONOCYTES ABSOLUTE AUTO 1.21 K/mm3 (0.16-1.47); MONOCYTES PERCENT AUTO 10 % (4-13); Mean Corpuscular HGB 27.7 pg (26.0-34.0); Mean Corpuscular HGB Conc 30.7 g/dL (31.5-36.5); Mean Corpuscular Volume 90 fL (80-100); Mean Platelet Volume 9.3 fL (9.1-12.4); NEUTROPHILS ABSOLUTE AUTO 9.45 K/mm3 (1.96-9.15); NEUTROPHILS PERCENT AUTO 75 % (41-73); Platelet Count 514 K/mm3 (150-400); RDW Coefficient Variation 15.9 % (11.7-14.2); RDW Standard Deviation 52.2 fL (35.1-46.3); Red Blood Cell Count 3.18 M/mm3 (3.80-5.20); White Blood Cell Count 12.63 K/mm3 (4.00-11.30)
[2019-07-30] MEDS ORDERED: MIRALAX17 GM PO (16:58)
[2019-07-30] MEDS ORDERED: FURO40 PO (16:58)
[2019-07-30] MEDS ORDERED: DULO30 PO (17:00)
--- NOTE | 2019-07-30 17:17 | NUR ---
PT ARRIVAL... PT ARRIVED ON UNIT VIA W/C. PT IS DIRECT ADMIT FROM DR. CAMILO FOR S/P PACEMAKER INFECTION. PT'S VS STABLE AT THIS TIME. L/S CLEAR T/O DIM IN THE BASES, PT IS ON RA WITH O2 SATS>90%. BT PRESENT AND HYPOACTIVE ABD SOFT AND NONTENDER TO PALP. PT'S BUE HAVE DEPENDENT EDEMA. PT APPEARES VERY SLEEPY AND PALE BUT RESPONDS TO VERBAL STIMULI. PACEMAKER SITE HAS STERI STRIPS AND THERE IS A NOTED RED AREA AROUND THE SUTURE SITE. PT C/O OF SLIGHT PAIN TO HER LEFT NECK AREA. PT IS TO BE NPO AT MIDNIGHT FOR PROCEDURE IN THE AM. CALL LIGHT IN REACH WILL CONTINUE TO MONITOR.
--- NOTE | 2019-07-30 18:30 | NUR ---
SHIFT SUMMARY... NO ACUTE NEGATIVE CHANGES NOTED THIS SHIFT. PT'S VS STABLE SINCE ARRIVAL. PT IS TO BE NPO AT MIDNIGHT FOR PROCEDURE TOMORROW. PT HAS BEEN SLEEPY/LETHARGIC SINCE ARRIVAL BUT EASY TO AROUSE. CALL LIGHT IN REACH WILL CONTINUE TO MONITOR UNTIL REPORT IS GIVEN TO ONCOMING RN.
--- NOTE | 2019-07-30 22:00 | NUR ---
CARE ASSUMPTION PT A&O X4. VSS. MONITOR SHOWS 100% PACING, HR 70's. LUNG SOUNDS CLEAR. SPO2 > 92% ON RA. PT L CHEST WALL PACER INSERTION SITE NOTED TO BE RED W/ SMALL AMOUNT OF PURULENT DRAINAGE, SEE PHOTO IN CHART. SITE DRESSED W/ STERI STRIPS AND NON ADHERENT BADAGE. PT W/ RED GROIN & COCCYX. ULCERS PRESENT TO COCCYX, SEE PHOTO IN CHART. PT C/O 10 L HIP PAIN. PT REPORTS MULTIPLE FALLS AT HOME & REPORTS HAVING RECENT L HIP SURGERY AFTER FALLING AND BREAKING HER HIP. PT MEDICATED PER PT REQUEST/EMAR. PT INCONTINENT OF URINE AND STOOL. JOHNSON CATH INSERTED PER EMAR, UA SENT. PT TO BE NPO @ MIDNIGHT. WILL CONTINUE TO MONITOR AND PROVIDE CARE.
[2019-07-30 22:01] LABS: Source, Urine Clean Catch
[2019-07-30 22:04] LABS: Bilirubin, Urine Neg (Neg); Blood, Urine 4+ (Neg); Glucose Qualitative, Urine Neg (Neg); Ketones, Urine 1+ (Neg); Leukocyte Esterase, Urine 3+ (Neg); Nitrite, Urine Pos (Neg); Protein, Urine 3+ (Neg); Specific Gravity, Urine 1.015 (1.003-1.022); Urobilinogen, Urine NORM (Normal)
[2019-07-30 22:10] LABS: Appearance, Urine Turbid (Clear); Color, Urine Yellow (P-Yellow)
[2019-07-30 22:11] LABS: Bacteria Many /hpf; Red Blood Cells, Urine 0-2 /hpf (0-2); Squamous Epithelial Cells Few /hpf (Few); White Blood Cells, Urine TNTC /hpf (0-5)
--- NOTE | 2019-07-31 01:55 | NUR ---
UPDATE: PAIN "I WOULD MUCH RATHER BE THAN HAVE AGREED TO THAT PACER. EVERYTHING HURTS. FROM MY ANKLES UP TO MY NECK HURTS. NOTHING HELPS THE PAIN. I'M JUST SO TIRED. I CAN'T GO ON LIKE THIS." WHEN ASKING PT IF SHE SPEAKS OF FROM A PLACE OF PAIN OR TRULY WANTING TO , PT RESPONDS "BOTH." TIME SPENT COMFORTING PT. PT REPORTS "I JUST WANT TO AND GET OUT OF HERE." WHEN ASKING PT IF SHE WANTS TO CONTINUE W/ TREATMENT, HAVE HER PACER INFECTION TREATED AND PAIN BETTER MANAGED IF POSSIBLE, PT REPORTS, "NO. I DON'T WANT THAT. I JUST WANT TO GO." PT REPORTS SHE IS INTERESTED IN COMFORT CARE. ENCOURAGED PT WE WILL DO OUR BEST TO MANAGE PAIN THROUGH THE NIGHT & FURTHER DISCUSS PT WANTS & CARE PLAN W/ MD FOLLOWING PT IN AM. MEDICATION PROVIDED PER PT REQUEST/EMAR. WILL CONTINUE TO MONITOR AND PROVIDE CARE.
--- NOTE | 2019-07-31 05:32 | NUR ---
SHIFT SUMMARY PT CONTINUES TO BE A&O X4. PT W/ FLAT AFFECT. PT C/O PAIN & SPEAKING OF WANTING TO , SEE PREVIOUS NOTE. PT ENCOURAGED TO VOICE CONCERNS AND DESIRES FOR PLAN OF CARE W/ MD TODAY. PALLIATIVE CARE CONSULT & SOCIAL SERVICE CONSULT PLACED. PT MEDICATED PER PT REQUEST/EMAR X3 THIS SHIFT. VSS. MONITOR SHOWS 100% PACING, HR 70's. LUNG SOUNDS CLEAR. SPO2 > 92% ON RA. PACER INSERTION SITE CONTINUES TO BE RED W/ SMALL AMOUNT OF PURULENT DRAINAGE. PT's COCCYX & GROIN RED W/ ULCERS PRESENT TO COCCYX. JOHNSON CATH PATENT AND DRAINING CLOUDY YELLOW URINE. WILL CONTINUE TO MONITOR AND PROVIDE CARE UNTIL REPORT OFF TO DAY SHIFT RN.
--- NOTE | 2019-07-31 07:48 | NUR ---
AM NOTE... ASSUMED CARE OF PT APROX 0700. PT IS A&Ox4 AND WAS ADMITTED FOR AN INFECTED PACEMAKER. PT'S VS STABLE AT THIS TIME, L/S CLEAR T/O ON RA. PT HAS NONPITTING EDEMA TO HER BUE. BT PRESENT AND HYPOACTIVE ABD SOFT AND NONTENDER TO PALP. PER REPORT FROM THE [facility] RN PT DOES NOT WANT TO HAVE THIS PROCEDURE. DURING BEDSIDE REPORT THE PT STATED "I DO NOT WANT TO HAVE ANY THING ELSE DONE, I JUST WANT TO GO HOME AND ." THE CARDIOLOGY PROVIDER CAME ON TO THE UNIT TO SPEAK WITH THE PT. THE PROCEDURE WAS CANCELED. PT'S PAIN WAS NOT WELL CONTROLLED AT THIS TIME, CHANGES WERE MADE TO PT'S PAIN REGIMEN TO HELP PROVIDE BETTER PAIN MANAGMENT. WHEN THIS RN WAS IN THE ROOM GIVING THE PT PAIN MEDICATION THE PT SAID TO THIS RN "I JUST WANT TO PLEASE JUST LET ME ." THIS RN TOLD THE PT THAT WE WERE NOT PROVIDING ANY TREATMENT AT THIS TIME THAT IS KEEPING HER ALIVE, THE PT THEN RESPONDED "WELL YOU CAN KILL ME THEN, PLEASE KILL ME" THIS RN TOLD THE PT "I AM SORRY BUT I CAN'T DO THAT." THE PT THEN SAID "YES YOU CAN, YOU CAN PUT A PILLOW OVER MY FACE AND KILL ME." EMOTIONAL SUPPORT WAS PROVIDED TO THE PT, AT THIS TIME. PALLIATIVE CARE WAS BROUGHT ON BOARD THIS AM. CALL LIGHT IN REACH WILL CONTINUE TO MONITOR.
[2019-07-31 10:30] LABS: Bun/Creatinine Ratio 27.3 (12.0-20.0); Calcium, Blood 8.1 mg/dL (8.5-10.1); Creatinine, Blood 3.63 mg/dL (0.40-1.00); Potassium, Blood 5.5 mmol/L (3.5-5.5)
--- NOTE | 2019-07-31 13:09 | NUR ---
Called to meet with pt showing signs of distress. Review of patients chart and update from nurse. pt has met with veronique Sierra so included her in the plan of care. Had veronique sierra meet with patient first. I then saw pt for symptom assessment. Pt states she has more of a headache today. She has some mild intermintant ringing in her ears. She states her neck is very tight and sore and difficutl to move. She complains of mouth soreness. She refused her pills this morning. She can swallow just does not want to. She refused water and states she does not have an appetite. She denies nausea. Pt states not much pain to back his[ of legs. She is afraid to move her left arm at all. pt tended to touch on neck and chest. Neck is very tight. abdoment is soft. Asked pt if she is anxious or fearfull. She is stoic, tearfull and flat. reassured her she is safe here. Theraputic reassurance and touch. She needs soothing expresses great stress at her decline and discomfort. Called her son to review her symptoms and assessment. Her son is an RN. He realyed events since her last admission. States she ahs been calling him from the [place] [facility] stating she wanted the pacemaker off and regretted getting it. He Stated he has not seen her since EMS took her away. He is concerned that she may have caused the infection and has been pulling at the site. Son states she has been active and engaged before this event and going to crafting classes and independent. He has called Dr. Kaur. He also called his siblings to discuss care. He is under the unstatnding that if she requests comfort only we must honor her request. Review with son of taking a thoughful pause and careful approach. pt may not qualify for hospice and is ymptomatic. Requested that son be allowed to come in and see patient. He was happy to do this he is also very distraught. Got permission to have him come in for decisional process. Advised patient he was coming in she perked up and was glad. Review possible med changes for patient for pain with nursing. Will contact dr Kaur for care plan. Will focus on symptom management today and reevaluate after son sees patient and she has that support. Suggested that face time with her family.
--- NOTE | 2019-07-31 16:51 | NUR ---
Initial spiritual care note: When I met with Mrs. Parker early today, she appeared very weak and tired. She told me that she was ready to . When asked if we could alieviate her pain/suffering, would she still want to , and she responded "yes." She allowed prayer at bedisde and fell back to sleep. I will remain available.
--- NOTE | 2019-07-31 18:03 | NUR ---
SHIFT SUMMARY... NO ACUTE NEGATIVE CHANGES NOTED THIS SHIFT. THE PT'S SON CAME INTO VIST WITH THE PT AND TALK WITH HER ABOUT COMFORT CARE/HOSPICE VS TREATMENT OF THE PACEMAKER INFECTION. AFTER THE PT AND HER SON SPOKE WITH PALLIATIVE CARE RN AND OTHER FAMILY MEMBERS THE PT STATES SHE WANTS FULL TREATMENT AND THE PROCEDURE TO CLEAN THE PACEMAKER SITE. PT IS TO BE COBRA TRANSFERED TO [facility], CURRENTLY WAITING ON A BED. THE PT HAS BEEN REFUSING ALL PO INTAKE AND MEDICATIONS D/T HER THROAT HURTING WHEN SHE SWALLOWS AND STATING SHE FEELS LIKE "STUFF DOESN'T GO DOWN." PT'S PAIN HAS BEEN A LITTLE BETTER CONTROLLED THIS AFTERNOON WITH THE ADDITION OF FENTANYL. CALL LIGHT IN REACH WILL CONTINUE TO MONITOR UNTIL REPORT IS GIVEN TO ONCOMING RN.
--- NOTE | 2019-07-31 19:51 | NUR ---
CARE ASSUMPTION PT A&O X4 W/ FLAT AFFECT. VSS. MONITOR SHOWS 100% PACED, HR 70's. SPO2 > 92% ON RA. PT AWAITING COBRA TRANSFER TO [facility]. RM ASSIGNMENT RECIEVED. REPORT ATTEMPT CALLED @ 1944 W/ ACCEPTING RN REQUESTING CALL BACK @ 1999.
--- NOTE | 2019-07-31 21:07 | NUR ---
DISCHARGED - COBRA PT COBRA TRANSFERRED TO [facility], TAKEN BY YOHANA, VIA AMBULANCE @ 2014. PT A&O X4. 20G PIV TO SEDRICK. ALEX HERNANDEZ PATENT AND DRAINING. PT MEDICATED W/ IV FENTANYL PER EMAR PRIOR TO DEPARTURE. TELEPHONE REPORT GIVEN TO ACCEPTING RN, ALIYA @ [facility]. PT's CODI QUEZADA NOTIFIED OF PT DEPARTURE/TRANSFER.
== END 2019-07-31 20:15 | disposition short-term general hospital (02) | DRG 315 ==
LOC: PCU 14:46
PROVIDERS: ADMIT Internal Medicine Cardiovascular Disease
DX: T82.7XXA Infection and inflammatory reaction due to other cardiac and vascular devices, implants and grafts, initial encounter (principal); I44.2 Atrioventricular block, complete; N17.9 Acute kidney failure, unspecified; N39.0 Urinary tract infection, site not specified; I42.1 Obstructive hypertrophic cardiomyopathy; N18.4 Chronic kidney disease, stage 4 (severe); E87.1 Hypo-osmolality and hyponatremia; Z51.5 Encounter for palliative care; E11.22 Type 2 diabetes mellitus with diabetic chronic kidney disease; I12.9 Hypertensive chronic kidney disease with stage 1 through stage 4 chronic kidney disease, or unspecified chronic kidney disease; E78.5 Hyperlipidemia, unspecified; K21.9 Gastro-esophageal reflux disease without esophagitis; Z90.11 Acquired absence of right breast and nipple; Z96.643 Presence of artificial hip joint, bilateral; Z79.82 Long term (current) use of aspirin; Z79.4 Long term (current) use of insulin; G47.33 Obstructive sleep apnea (adult) (pediatric); D47.3 Essential (hemorrhagic) thrombocythemia; D63.1 Anemia in chronic kidney disease; T82.897A Other specified complication of cardiac prosthetic devices, implants and grafts, initial encounter; Z96.0 Presence of urogenital implants
CPT/HCPCS: 36415; 80048; 81001; 82947; 85025; 87040; 87077; 87086; 87186; A9270-GY; J0690; J3010